=== PATIENT | male | born 1950 | race Caucasian/White ===

== ENCOUNTER 2016-04-30 18:35 | Inpatient (IN) ==
[2016-04-30] MEDS ORDERED: Indomethacin 25 MG CAPSULE PO ONE (18:52)
[2016-04-30] MEDS ORDERED: *HR* HYDROmorphone (PF) 1 MG/ML SYRINGE IVP ONE (18:52)
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
[2016-04-30] MEDS ORDERED: Ondansetron 4 MG/2 ML VIAL IV STA (19:21)
[2016-04-30 19:27] LABS: Basophils % 0.5 %; Eosinophils # 0.1 K/mcL (0.0-0.6); Eosinophils % 1.3 %; Hematocrit 49.9 % (37.5-50.1); Hemoglobin 16.6 g/dL (12.9-16.9); Lymphocytes # 1.3 K/mcL (0.6-4.6); Lymphocytes % 15.4 %; Mean Corpuscular HGB Conc 33.3 g/dL (31.6-35.5); Mean Corpuscular Hemoglobin 30.2 pg (28.0-33.3); Mean Corpuscular Volume 90.9 fL (83.0-100.0); Monocytes # 1.1 K/mcL (0.0-1.3); Monocytes % 12.1 %; Neutrophils # 6.1 K/mcL (1.6-8.9); Platelet Count 171 K/mcL (140-400); Red Blood Count 5.49 M/mcL (4.19-5.50); Red Cell Distribution Width 13.8 % (11.5-14.5); Segmented Neutrophils % 69.7 %
[2016-04-30 19:39] LABS: BUN/Creatinine Ratio 18 (6-26); Blood Urea Nitrogen 18 mg/dL (8-26); Calcium 7.9 mg/dL (8.6-10.8); Carbon Dioxide 20 mEq/L (19-29); Chloride 107 mEq/L (98-109); Glucose 114 mg/dL (70-99); Osmolality,Calculated 291 (280-300); Potassium 3.7 mEq/L (3.5-4.5); Sodium 139 mEq/L (136-145); eGFR For African Americans > 60 (> 60); eGFR For Non-African Americans > 60 (> 60)
[2016-04-30] MEDS ORDERED: Albuterol 2.5 MG/3 ML NEBULIZER IH PRN (23:06)
[2016-04-30] MEDS ORDERED: Naloxone 0.4 MG/ML INJ IVP PRN (23:11)
[2016-04-30] MEDS ORDERED: Acetaminophen 325 MG TABLET PO PRN (23:11)
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
[2016-04-30] MEDS: Colchicine 0.6 MG TABLET PO SCH (23:38)
[2016-05-01] MEDS: Ipratropium 1 PUFF INHALER IH SCH ×4 (04:51→22:58)
[2016-05-01] MEDS: Colchicine 0.6 MG TABLET PO SCH ×2 (08:35→16:31)
[2016-05-01] MEDS: Nystatin POWDER 30 GM BOTTLE TP SCH ×3 (08:35→21:00)
[2016-05-01] MEDS: Aspirin Enteric Coated 81 MG Tablet PO SCH (08:35)
[2016-05-01] MEDS: Lisinopril 20 MG TABLET PO SCH (08:35)
[2016-05-01] MEDS ORDERED: NON-FORMULARY MEDICATION 1 EACH EACH (Ipratropium/Albuterol Sulfate [Combivent Respimat In IH SCH (09:00)
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
[2016-05-02] MEDS: Ipratropium 1 PUFF INHALER IH SCH ×4 (04:17→23:20)
[2016-05-02 04:52] LABS: Basophils # 0.1 K/mcL (0.0-0.2); Basophils % 0.6 %; Eosinophils # 0.3 K/mcL (0.0-0.6); Eosinophils % 4.1 %; Hematocrit 46.1 % (37.5-50.1); Hemoglobin 15.4 g/dL (12.9-16.9); Immature Granulocytes % 1.3 % (0-4); Lymphocytes # 1.9 K/mcL (0.6-4.6); Lymphocytes % 24.1 %; Mean Corpuscular HGB Conc 33.4 g/dL (31.6-35.5); Mean Corpuscular Hemoglobin 30.7 pg (28.0-33.3); Mean Corpuscular Volume 91.8 fL (83.0-100.0); Mean Platelet Volume 9.3 fL (9.4-12.4); Monocytes # 0.9 K/mcL (0.0-1.3); Neutrophils # 4.5 K/mcL (1.6-8.9); Platelet Count 218 K/mcL (140-400); Red Blood Count 5.02 M/mcL (4.19-5.50); Segmented Neutrophils % 58.9 %
[2016-05-02 05:04] LABS: Calcium 8.6 mg/dL (8.6-10.8); Potassium 4.6 mEq/L (3.5-4.5); Uric Acid 8.5 mg/dL (3.5-7.2)
[2016-05-02] MEDS: Lisinopril 20 MG TABLET PO SCH (09:32)
[2016-05-02] MEDS: Colchicine 0.6 MG TABLET PO SCH (09:32)
[2016-05-02] MEDS: Aspirin Enteric Coated 81 MG Tablet PO SCH (09:32)
[2016-05-02] MEDS: Nystatin POWDER 30 GM BOTTLE TP SCH ×3 (09:32→21:46)
[2016-05-02] MEDS: 0.9 % Sodium Chloride 1,000 ML IVC SCH ×2 (09:33→19:47)
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
[2016-05-02] MEDS: Ketorolac 15 MG/ML VIAL IVP PRN (21:53)
[2016-05-03] MEDS: Ipratropium 1 PUFF INHALER IH SCH ×4 (04:19→23:46)
[2016-05-03 05:10] LABS: BUN/Creatinine Ratio 34 (6-26); Blood Urea Nitrogen 45 mg/dL (8-26); Calcium 8.4 mg/dL (8.6-10.8); Carbon Dioxide 20 mEq/L (19-29); Chloride 109 mEq/L (98-109); Glucose 114 mg/dL (70-99); Osmolality,Calculated 298 (280-300); Potassium 4.6 mEq/L (3.5-4.5); Sodium 138 mEq/L (136-145); Uric Acid 7.5 mg/dL (3.5-7.2); eGFR For African Americans > 60 (> 60); eGFR For Non-African Americans 54 (> 60)
[2016-05-03] MEDS: 0.9 % Sodium Chloride 1,000 ML IVC SCH ×2 (06:06→15:17)
[2016-05-03] MEDS: Lisinopril 20 MG TABLET PO SCH (07:30)
[2016-05-03] MEDS: Colchicine 0.6 MG TABLET PO SCH (07:30)
[2016-05-03] MEDS: Aspirin Enteric Coated 81 MG Tablet PO SCH (07:30)
[2016-05-03] MEDS: Nystatin POWDER 30 GM BOTTLE TP SCH ×3 (07:30→19:50)
[2016-05-03 10:43] LABS: Phosphorous 3.9 mg/dL (2.3-4.7)
--- NOTE | 2016-05-03 19:19 | Internal Med Progress Note ---
Date of Encounter: 05/03/16 Time of Encounter: 11:10 - Assessment and plan (1) Acute renal failure superimposed on stage 3 chronic kidney disease Current Visit: Yes Status: Acute (2) Gout Current Visit: Yes Status: Acute Assessment and plan: Plan Continue current medication, ambulate, physical therapy consult, continue fluids. Possible discharge next 24-hour with home health. Patient still has trouble with ambulation and standing because his pain. Consider home health on discharge. Adjust pain medication as tolerated Qualifiers: Gout site: foot Gout etiology: unspecified cause Laterality: unspecified laterality Chronicity: acute Qualified Code(s): M10.9 - Gout, unspecified - Subjective Interval history: Patient complains of pain in the bottom of his feet. Feels better compared to yesterday. Patient denies any chest pain or shortness of breath. He is complaining of feeling weak. He had bowel movement yesterday - Constitutional Vitals: Temp Pulse Resp BP Pulse Ox 97.5 F L 83 16 108/69 93 L 05/03/16 16:01 05/03/16 16:01 05/03/16 16:01 05/03/16 16:01 05/03/16 16:01 General appearance: Present: A&O X 3, morbidly obese, pleasant, no acute distress, answers questions appropriately - Head Head exam: Present: atraumatic, normocephalic - Neck Neck exam general surgery: Present: supple, trachea midline. Absent: lymphadenopathy - Respiratory Respiratory exam: Present: decreased breath sounds. Absent: accessory muscle use, rales, rhonchi, wheezes - Cardiovascular Cardiovascular exam: Present: RRR, +S1, +S2. Absent: diastolic murmur, gallop, rubs, systolic murmur - GI/Abdominal GI/Abdominal exam: Present: normal bowel sounds, soft, no peritoneal signs. Absent: distended, tenderness - Extremities Exam Extremities exam: Absent: calf tenderness (Tenderness on the sole of or so of both feet his feet), cyanotic - Neurological Exam Neurological exam: Present: CN II-XII intact, oriented X3, no focal deficits. Absent: speech deficit Internal Medicine: Result - Labs CBC & Chem 7: 05/02/16 04:12 05/03/16 04:40 Labs: BMP 05/03/16 04:40 Sodium 138 Potassium 4.6 H Chloride 109 Carbon Dioxide 20 BUN 45 H Creatinine 1.34 H Glucose 114 H Calcium 8.4 L Consult Discharge Plan - Plan Referrals: NO,PCP [Primary Care Provider] -
[2016-05-04] MEDS: 0.9 % Sodium Chloride 1,000 ML IVC SCH ×2 (01:05→12:37)
[2016-05-04] MEDS: Ketorolac 15 MG/ML VIAL IVP PRN (04:35)
[2016-05-04] MEDS: Ipratropium 1 PUFF INHALER IH SCH ×3 (04:47→16:24)
[2016-05-04] MEDS: Colchicine 0.6 MG TABLET PO SCH (08:58)
[2016-05-04] MEDS: Lisinopril 20 MG TABLET PO SCH (08:59)
[2016-05-04] MEDS: Aspirin Enteric Coated 81 MG Tablet PO SCH (08:59)
[2016-05-04] MEDS: Nystatin POWDER 30 GM BOTTLE TP SCH ×2 (09:00→12:37)
[2016-05-04 11:59] VITALS: BP 118/74
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
--- NOTE | 2016-05-04 17:54 | Physician Discharge Referral ---
Home Health/Hosp Referral Info Provider in Charge Post Discharge: PCP - Diagnosis (1) Acute renal failure superimposed on stage 3 chronic kidney disease Priority: Primary Status: Acute (2) Gout Priority: Primary Status: Acute - Respiratory Orders Smoking Cessation: Smoking cessation has been advised. For more information, call the [place] Tobacco Quit Line at 6-190-WMNI-NOW. - Diet/Nutrition Diet/Nutrition Orders: Renal - Activity Activity Orders: Walker - Services Needed Following services are medically necessary services: Nursing, Physical Therapy - Transfer Medications Prescriptions: Acetaminophen [Tylenol] 650 mg PO Q6HR PRN #60 tablet PRN Reason: Fever Colchicine [Colcrys] 0.6 mg PO DAILY #30 tablet Nystatin POWDER [Nystop] 1 appl TP TID #1 bottle Omeprazole [PriLOSEC] 20 mg PO DAILY@0630 #30 capsule. Home Medications: Albuterol Neb [Proventil Neb] 3 ml IH Q6H PRN 04/01/16 [History] Albuterol Sulfate [Ventolin Hfa] 2 puff IH Q6H PRN 04/01/16 [History] Aspirin [Lo-Dose Aspirin EC] 81 mg PO DAILY 04/01/16 [History] Enalapril Maleate [Vasotec] 20 mg PO DAILY 04/01/16 [History] Ipratropium/Albuterol Sulfate [Combivent Respimat Inhal [place]] 1 puff IH QID [History] Acetaminophen [Tylenol] 650 mg PO Q6HR PRN #60 tablet 05/04/16 [Rx] Allopurinol [Zyloprim 300 MG] 150 mg PO DAILY #45 05/04/16 [Rx] Colchicine [Colcrys] 0.6 mg PO DAILY #30 tablet 05/04/16 [Rx] Nystatin POWDER [Nystop] 1 appl TP TID #1 bottle 05/04/16 [Rx] Omeprazole [PriLOSEC] 20 mg PO DAILY@0630 #30 capsule. 05/04/16 [Rx] Allergies/Adverse Reactions: Allergies Sulfa (Sulfonamide Antibiotics) Allergy (Verified 04/01/16 10:50) See Comments PATIENT UNSURE OF REACTION- Certification: Further, I certify that my clinical findings support that this patient is homebound (i.e. absences from home require considerable and taxing effort and are for medical reasons or anglican services or infrequently or short duration when for other reasons) because: Homebound Reason: Patient requires assistance of a person or device to safely leave home, Leaving home requires considerable and taxing effort due to condition Attestation: My signature below is to certify that this patient is under my care and that I, or nurse practitioner, or a physician's certified physician's assistant working with me, has a face-to -face encounter with this patient.
== END 2016-05-04 17:11 | disposition home health service (06) | DRG 683 ==
LOC: EMEROO 18:35 → 3BNU 18:35
PROVIDERS: ADMIT Internal Medicine; ATTEND Nurse Practitioner Family

== ENCOUNTER 2016-08-30 12:08 | Observation (INO) ==
[2016-08-30] MEDS ORDERED: Ipratropium/Albuterol Neb 3 ML IH ONE (12:11)
--- NOTE | 2016-08-30 12:17 | Emergency Department Note ---
Disposition Clinical Impression: Asthma with exacerbation Qualifiers: Asthma severity: unspecified severity Qualified Code(s): J45.901 - Unspecified asthma with (acute) exacerbation Disposition: Admitted As Inpatient Condition: Fair Time of Disposition: 13:27 SOB HPI - General Stated Complaint: cough, gasper Time Seen by Provider: 08/30/16 12:11 Source: patient, EMS Mode of arrival: ambulatory Limitations: no limitations Nursing Notes Reviewed: Yes Vital Signs Reviewed: Yes - History of Present Illness History 5-year-old comes in complaining of increasing shortness breath over the last day or so. Squad states that he has not been diagnosed with any lung problems but he does use an inhaler at home and he is on 2-1/2 L of oxygen. Patient is scheduled to be seen by pulmonology in the next week or so. She's had a cough and he feels that he has bronchitis. Pt Subjective Complaint: shortness of breath Onset (ago): Just SIGN ARTIST Context: recent illness Severity: mild, moderate Consistency/Duration: constant Improves with: nothing Worsens with: exertion Known history of: asthma Associated symptoms: Reports: cough Treatment prior to arrival: none Cough Description: Involuntary Cough Frequency: Intermittent - Related Data Home Medications Medication Instructions Recorded Confirmed Albuterol Neb [Proventil Neb] 3 ml IH Q6H PRN 04/01/16 04/30/16 Albuterol Sulfate [Ventolin Hfa] 2 puff IH Q6H PRN 04/01/16 04/30/16 Aspirin [Lo-Dose Aspirin EC] 81 mg PO DAILY 04/01/16 04/30/16 Enalapril Maleate [Vasotec] 20 mg PO DAILY 04/01/16 04/30/16 Ipratropium/Albuterol Sulfate 1 puff IH QID 04/01/16 04/30/16 [Combivent Respimat Inhal [place]] Previous Rx's Medication Instructions Recorded Acetaminophen [Tylenol] 650 mg PO Q6HR PRN #60 tablet 05/04/16 Allopurinol [Zyloprim 300 MG] 150 mg PO DAILY #45 05/04/16 Colchicine [Colcrys] 0.6 mg PO DAILY #30 tablet 05/04/16 Nystatin POWDER [Nystop] 1 appl TP TID #1 bottle 05/04/16 Omeprazole [PriLOSEC] 20 mg PO DAILY@0630 #30 capsule. 05/04/16 Allergies Allergy/AdvReac Type Severity Reaction Status Date / Time Sulfa (Sulfonamide Allergy See Verified 04/01/16 10:50 Antibiotics) Comments All systems ED: reviewed and negative except as stated. Constitutional: Denies: fever, chills, weakness, weight change Eyes: Denies: eye pain, eye discharge, vision change ENT ED: Denies: ear pain, throat pain, dental pain, hearing loss, epistaxis, congestion, dysphagia Cardiovascular: Denies: chest pain, palpitations, dyspnea on exertion, edema, syncope Respiratory: Reports: dyspnea. Denies: cough, wheezes, hemoptysis, stridor Gastrointestinal: Denies: abdominal pain, nausea, vomiting, diarrhea, constipation, hematemesis, melena, hematochezia Genitourinary: Denies: urgency, dysuria, frequency, hematuria Musculoskeletal: Denies: back pain, neck pain, arthralgia, myalgia Integumentary: Denies: rash, abrasion, lesions Neurological: Denies: headache, weakness, numbness, paresthesias, confusion, abnormal gait, vertigo Psychiatric: Denies: anxiety, depression, suicidal thoughts, homicidal thoughts , auditory hallucinations, visual hallucinations Endocrine: Denies: fatigue Hematological/Lymphatic: Denies: easy bleeding, easy bruising Allergic/Immunologic: Denies: facial swelling, urticaria Past Medical History - Past Medical History Medical history: Reports: arthritis, asthma, COPD, hypertension, osteoporosis, other Surgical history: Reports: cholecystectomy, other Psychiatric history: Reports: no psych history - Social History Smoking Status: Former smoker Smokeless Tobacco Status: No Alcohol use: Reports: none Drug use: Reports: none Physical Exam - General Limitations: no limitations General appearance: alert - Head Head exam: atraumatic, normocephalic, normal inspection - Eye Eye exam: Present: normal appearance, PERRL, EOMI - ENT ENT exam: normal exam, normal oropharynx, mucous membranes moist - Neck Neck exam: Present: normal inspection, full ROM, trachea midline - Chest Chest inspection: Present: normal inspection, symmetric chest wall rise - Respiratory Respiratory exam: Present: wheezes, accessory muscle use - Cardiovascular Cardiovascular exam: Present: regular rate, normal rhythm, normal heart sounds - Abdominal Exam Abdominal exam: Present: soft, Non-Tender. Absent: tenderness, distention, guarding, rebound, rigidity - Extremities Exam Extremities exam: Present: normal inspection, full ROM. Absent: tenderness, pedal edema - Expanded Lower Extremity Exam Neurovascular/Tendon exam: Absent: motor deficit, sensory deficit, tendon deficit Gait: observed and normal - Back Exam Back exam: Present: normal inspection, full ROM. Absent: tenderness - Neurological Exam Neurological exam: Present: alert, oriented X3 - Psychiatric Psychiatric exam: Present: normal affect, normal mood - Skin Skin exam: Present: warm, dry, intact, normal color Course - Reevaluation(s) Reevaluation #1: Continues with wheezing and shortness of breath although improved from arrival. Will admit. Time: 13:28 - Consultations Consultation #1: Discussed with Dr. Metzger, admit. Time: 13:28 Vital Signs Temperature 98.4 F 08/30/16 12:10 Pulse Rate 76 08/30/16 12:10 Respiratory Rate 18 08/30/16 12:10 Blood Pressure 126/88 08/30/16 12:10 O2 Sat by Pulse Oximetry 94 08/30/16 12:10 Temperature 98.4 F 08/30/16 12:10 Pulse Rate 76 08/30/16 12:10 Respiratory Rate 18 08/30/16 12:25 Blood Pressure 126/88 08/30/16 12:25 O2 Sat by Pulse Oximetry 91 08/30/16 12:25 Oxygen Delivery Oxygen Delivery Nasal Cannula Shortness of Breath/Dyspnea - Lab Data Lab results reviewed: Yes I reviewed the patient's lab results. Result diagrams: 08/30/16 12:37 08/30/16 12:37 Lab Results 08/30/16 08/30/16 08/30/16 Range/Units 12:37 12:37 12:37 WBC 7.3 (4.3-11.1) K/mcL RBC 5.43 (4.19-5.50) M/mcL Hgb 16.1 (12.9-16.9) g/dL Hct 49.8 (37.5-50.1) % MCV 91.7 (83.0-100.0) fL MCH 29.7 (28.0-33.3) pg MCHC 32.3 (31.6-35.5) g/dL RDW 13.9 (11.5-14.5) % Plt Count 183 (140-400) K/mcL MPV 9.0 L (9.4-12.4) fL Immature Gran % 1.0 (0-4) % Seg Neutrophils % 70.4 % Lymphocytes % 17.2 % Monocytes % 8.7 % Eosinophils % 2.3 % Basophils % 0.4 % Neutrophils # 5.1 (1.6-8.9) K/mcL Lymphocytes # 1.3 (0.6-4.6) K/mcL Monocytes # 0.6 (0.0-1.3) K/mcL Eosinophils # 0.2 (0.0-0.6) K/mcL Basophils # 0.0 (0.0-0.2) K/mcL Sodium 136 (136-145) mEq/L Potassium 4.5 (3.5-4.5) mEq/L Chloride 102 (98-109) mEq/L Carbon Dioxide 26 (19-29) mEq/L BUN 15 (8-26) mg/dL Creatinine 0.94 (0.72-1.25) mg/dL Est GFR ( Amer) > 60 (> 60) Est GFR (Non-Af Amer) > 60 (> 60) BUN/Creatinine Ratio 16 (6-26) Glucose 104 H (70-99) mg/dL Calculated Osmolality 283 (280-300) Lactic Acid 1.4 (0.5-2.2) mmol/L Calcium 9.4 (8.6-10.8) mg/dL Troponin I (0-0.03) ng/mL B-Natriuretic Peptide (0-100) pg/mL 08/30/16 08/30/16 Range/Units 12:37 12:37 WBC (4.3-11.1) K/mcL RBC (4.19-5.50) M/mcL Hgb (12.9-16.9) g/dL Hct (37.5-50.1) % MCV (83.0-100.0) fL MCH (28.0-33.3) pg MCHC (31.6-35.5) g/dL RDW (11.5-14.5) % Plt Count (140-400) K/mcL MPV (9.4-12.4) fL Immature Gran % (0-4) % Seg Neutrophils % % Lymphocytes % % Monocytes % % Eosinophils % % Basophils % % Neutrophils # (1.6-8.9) K/mcL Lymphocytes # (0.6-4.6) K/mcL Monocytes # (0.0-1.3) K/mcL Eosinophils # (0.0-0.6) K/mcL Basophils # (0.0-0.2) K/mcL Sodium (136-145) mEq/L Potassium (3.5-4.5) mEq/L Chloride (98-109) mEq/L Carbon Dioxide (19-29) mEq/L BUN (8-26) mg/dL Creatinine (0.72-1.25) mg/dL Est GFR ( Amer) (> 60) Est GFR (Non-Af Amer) (> 60) BUN/Creatinine Ratio (6-26) Glucose (70-99) mg/dL Calculated Osmolality (280-300) Lactic Acid (0.5-2.2) mmol/L Calcium (8.6-10.8) mg/dL Troponin I 0.01 (0-0.03) ng/mL B-Natriuretic Peptide 14 (0-100) pg/mL - Radiology Data Radiology results reviewed: Yes I reviewed the patient's radiology results. Chest X-Ray 08/30/16 12:11 IMPRESSION: 1. Exam limited by positioning. 2. Mild vascular congestive changes with suggestion of mild interstitial edema. 3. Chronic asymmetric elevation of the right diaphragm. D/ / 08/30/2016 13:04:56 Jared Cordero MD / Neha Ibrahim Interpreting Provider: Jared Cordero MD - EKG Data EKG attestation: Yes I reviewed and interpreted this EKG. EKG shows normal: Reports: sinus rhythm Rate: Reports: normal Rhythm: Reports: NSR, PVC's [place]/QRS: Reports: RBBB When compared to previous EKG there are: no significant changes (04/01/2016) Interpretation: Reports: no acute changes
[2016-08-30 12:53] LABS: Basophils % 0.4 %; Eosinophils # 0.2 K/mcL (0.0-0.6); Eosinophils % 2.3 %; Hematocrit 49.8 % (37.5-50.1); Hemoglobin 16.1 g/dL (12.9-16.9); Lymphocytes # 1.3 K/mcL (0.6-4.6); Lymphocytes % 17.2 %; Mean Corpuscular HGB Conc 32.3 g/dL (31.6-35.5); Mean Corpuscular Hemoglobin 29.7 pg (28.0-33.3); Mean Corpuscular Volume 91.7 fL (83.0-100.0); Monocytes # 0.6 K/mcL (0.0-1.3); Monocytes % 8.7 %; Neutrophils # 5.1 K/mcL (1.6-8.9); Platelet Count 183 K/mcL (140-400); Red Blood Count 5.43 M/mcL (4.19-5.50); Red Cell Distribution Width 13.9 % (11.5-14.5); Segmented Neutrophils % 70.4 %
[2016-08-30 13:07] LABS: BUN/Creatinine Ratio 16 (6-26); Blood Urea Nitrogen 15 mg/dL (8-26); Calcium 9.4 mg/dL (8.6-10.8); Carbon Dioxide 26 mEq/L (19-29); Chloride 102 mEq/L (98-109); Glucose 104 mg/dL (70-99); Osmolality,Calculated 283 (280-300); Potassium 4.5 mEq/L (3.5-4.5); Sodium 136 mEq/L (136-145); eGFR For African Americans > 60 (> 60); eGFR For Non-African Americans > 60 (> 60)
[2016-08-30] MEDS ORDERED: methylPREDNISolone 125 MG/2 ML VIAL IVP ONE (13:25)
--- NOTE | 2016-08-30 13:47 | Event Note ---
Date of Encounter: 08/30/16 Time of Encounter: 13:44 1. Acute on chronic respiratory failure likely secondary to acute asthma/COPD exacerbation due to acute bacterial bronchitis in combination with acute CHF exacerbation systolic versus diastolic Continue Solu-Medrol, DuoNeb nebs, oxygen therapy, Rocephin Start IV Lasix, strict I's and O's and daily weight Order an echocardiogram BNP normal ( can be normal in Obese people, chest x-ray shows vascular congestion) 2. Chronic kidney disease stage III, stable 3. Gout: May continue colchicine 4. Morbid Obesity 5. GERD, continue omeprazole charlee prophylaxis and subcutaneous heparin for dvt prophylaxis. patient will be admitted as inpatient, expected stay more than 2 midnights. full code. time spent on this admission 40 minutes. high risk for respiratory failure H&P to be written by GEENA Caicedo
[2016-08-30] MEDS ORDERED: *HR* HYDROcodone/Acet 5/325 mg TABLET PO PRN (14:01)
[2016-08-30] MEDS ORDERED: Naloxone 0.4 MG/ML INJ IVP PRN (14:01)
[2016-08-30] MEDS ORDERED: Acetaminophen 325 MG TABLET PO PRN (14:01)
[2016-08-30] MEDS ORDERED: Ondansetron 4 MG/2 ML VIAL IVP PRN (14:01)
[2016-08-30 14:02] LABS: Bilirubin,Urine Negative (Negative); Blood,Urine Negative (Negative); Clarity,Urine Clear (Clear); Color,Urine Yellow (Yellow); Glucose,Urine (UA) Normal (Normal); Ketones,Urine Negative (Negative); Leukocyte Esterase,Urine Negative (Negative); Nitrite,Urine Negative (Negative); Protein,Urine Negative (Neg-Trace); Specific Gravity,Urine 1.009 (1.010-1.025); Urobilinogen,Urine Normal (Normal)
[2016-08-30] MEDS ORDERED: Albuterol 2.5 MG/3 ML NEBULIZER IH PRN (14:05)
--- NOTE | 2016-08-30 14:17 | Internal Med History&Physical ---
<SaschaLalo - Last Filed: 08/30/16 15:00> Date of Encounter: 08/30/16 Time of Encounter: 13:45 Assessment and Plan (1) Asthma with exacerbation Current visit: Yes Status: Acute Assess: Mr. Mahoney presents with chief complaint of SOB and cough secondary to asthma/ COPD exacerbation most likely due to acute bacterial bronchitis (possible CHF). Patient states this has been going on for the last 48 hours with yellow sputum production within the past 24 hours. Mr. Mahoney reports that he uses inhaler and puffer at home as well as home O2 at 2.5 L. He states that he gets bronchitis frequently and these symptoms are what he usually experiences with bronchitis. Plan: Solu-Medrol ordered DuoNebs PRN Blood cultures ordered Sputum culture ordered Supplemental O2 ordered Administer IV Lasix IV Rocephin ordered Daily I&O Daily weight Monitor SpO2 and vital signs Falls precautions Qualifiers: Asthma severity: unspecified severity Qualified Code(s): J45.901 - Unspecified asthma with (acute) exacerbation (2) Acute gout Current visit: Yes Status: Acute Assess: Patient presents with history of chronic gout and acute exacerbation of gout during this admission. Plan: Continue Allopurinol and add colchicine if needed Qualifiers: Gout site: foot Gout etiology: unspecified cause Laterality: left Qualified Code(s): M10.9 - Gout, unspecified (3) COPD (chronic obstructive pulmonary disease) Current visit: Yes Status: Chronic Assess: Patient presents with history of chronic COPD. Patient is currently experiencing acute asthma/COPD exacerbation during this admission. Plan: Solu-Medrol ordered DuoNebs ordered PRN Supplemental O2 and SpO2 monitoring ordered IV Rocephin ordered for acute bacterial bronchitis Administer IV Lasix Continue Proventil, Albuterol sulfate inhaler, and Ipratropium/albuterol inhaler PRN Qualifiers: COPD type: unspecified COPD Qualified Code(s): J44.9 - Chronic obstructive pulmonary disease, unspecified (4) Morbid obesity with BMI of 50.0-59.9, adult Current visit: Yes Status: Chronic Assess: Patient presents with mordid obesity and current BMI of 58.0. Plan: Cardiac diet ordered Consult for dietary education ordered A1C ordered Lipid panel ordered (5) GERD (gastroesophageal reflux disease) Current visit: Yes Status: Chronic Assess: Patient presents with history of chronic GERD. Plan: Continue Omeprazole Zofran IVP ordered PRN for nausea Qualifiers: Esophagitis presence: esophagitis presence not specified Qualified Code(s) : K21.9 - Gastro-esophageal reflux disease without esophagitis (6) CKD (chronic kidney disease) stage 3, GFR 30-59 ml/min Current visit: No Status: Chronic Assess: Patient presents with chronic kidney disease, stage III (stable). Plan: Monitor I&O daily Monitor daily weight Judicious use of IV fluids (7) DVT prophylaxis Current visit: Yes Status: Acute Assess: Patient to be placed on DVT prophylaxis due to current inpatient status per protocol. Plan: Heparin 5,000 units SQ Q8 ordered Internal Medicine - H&P: HPI Chief complaint: SOB/cough Admitted From: Emergency Dept Plans for Post Hospital Care: Home History of present illness: Mr. Mahoney is a 65 year old male presents from the ED with chief complaint of SOB and cough. Patient states this has been going on for the last 48 hours with yellow sputum production within the past 24 hours. Mr. Mahoney reports that he uses inhaler and puffer at home as well as home O2 at 2.5 L. He states that he gets bronchitis frequently and these symptoms are what he usually experiences with bronchitis. Patient has a history of arthritis, osteoporosis, asthma, COPD , gout, and hypertension. He reports having his gallbladder removed. He also reports being a former smoker when he was in his 20's (approximately 40 years ago) but denies current tobacco use. Patient also denies nausea, vomiting, fever , chills, pain, headache, weakness, or exposure to any friends or family who are ill. Patient is to be admitted as observation status with orders for blood and sputum cultures, steroids, Lasix, breathing treatments PRN, and IV cetriaxone. Patient is falls precaution. Past Med Surg Social Fam HX - Past Medical History Medical history: arthritis, asthma, COPD, hypertension, osteoporosis, other ( Gout) Psychiatric history: no psych history - Past Surgical History Surgical History: cholecystectomy - Social History Smoking Status: Former smoker Packs per day: 1/2 PPD 40 years ago Smokeless Tobacco Status: No Alcohol use: none Drug use: none Occupational status: unemployed Current living situation: Home, With Family Activity Level: Independent ambulation Recent Out of Country Travel Within the Last 8 Weeks: No Exposure or Possible Exposure to Illness During Travel: No - Family History Mother Race: Family Member Ethnicity: Non- Twin of Family Member: Yes Living Status: Age at : 70 Hx Family Cardiac Disorders: Yes Hx Family Respiratory Disorders: Yes (COPD) Hx Family Cancer: No Hx Family GI Disorders: No Hx Family Endocrine Disorder: No Hx Family Neuromuscular Disorders: No Hx Family Neurologic Disorders: No Hx Family HEENT Disorders: No Hx Family Autoimmune Disorders: No Father Race: Family Member Ethnicity: Non- Living Status: Cause of : EtOH abuse Brother Race: Family Member Ethnicity: Non- Living Status: Still Living Hx Family Respiratory Disorders: Yes (Lung disease/COPD) Sister Race: Family Member Ethnicity: Non- Living Status: Still Living Hx Family Endocrine Disorder: Yes (DM) Internal Medicine - H&P: Meds Albuterol Neb [Proventil Neb] 3 ml IH Q6H PRN 04/01/16 [History] Albuterol Sulfate [Ventolin Hfa] 2 puff IH Q6H PRN 04/01/16 [History] Aspirin [Lo-Dose Aspirin EC] 81 mg PO DAILY 04/01/16 [History] Enalapril Maleate [Vasotec] 20 mg PO DAILY 04/01/16 [History] Ipratropium/Albuterol Sulfate [Combivent Respimat Inhal [place]] 1 puff IH QID [History] Allopurinol [Zyloprim 100 MG] 100 mg PO DAILY 08/30/16 [History] Omeprazole [PriLOSEC] 20 mg PO DAILY 08/30/16 [History] hydroCHLOROthiazide [Hydrochlorothiazide] 25 mg PO DAILY 08/30/16 [History] Allergies Sulfa (Sulfonamide Antibiotics) Allergy (Verified 04/01/16 10:50) See Comments PATIENT UNSURE OF REACTION- All Systems PM: A 10-system review of systems was performed and is negative for pertinent findings except as documented above in the HPI. - Constitutional Constitutional: no chills, no fever(s), no night sweats - EENT Eyes: no change in vision, no discharge, no pain, no photophobia Ears: no ear discharge, no ear pain, no tinnitus Nose, mouth and throat: no dysphagia, no nasal discharge, no neck pain, no sore throat - Breasts Breasts: as per HPI - Cardiovascular Cardiovascular ROS IM: no chest pain, no diaphoresis, no dyspnea, no lightheadedness, no palpitations, no syncope - Respiratory Respiratory: as per HPI, cough, dyspnea, change in phlegm color - Gastrointestinal Gastrointestinal: no abdominal pain, no diarrhea, no hematemesis, no hematochezia, no melena, no nausea, no vomiting - Genitourinary Genitourinary ROS male: as per HPI - Musculoskeletal Musculoskeletal ROS IM: no numbness, no tingling - Integumentary Integumentary IM: no rash, no unusual bruising - Neurological Neurological ROS: no confusion, no convulsions, no focal weakness, no numbness, no tingling, no tremor(s) - Psychiatric Psychiatric: as per HPI - Endocrine Endocrine IM: as per HPI - Hematologic/Lymphatic Hematologic/Lymphatic: no easy bruising - Allergic/Immunologic Allergic/Immunologic: as per HPI - Constitutional Vitals: Temp Pulse Resp BP Pulse Ox 98.4 F 74 18 110/69 96 08/30/16 12:10 08/30/16 13:43 08/30/16 13:56 08/30/16 13:56 08/30/16 13:43 General appearance: Present: cooperative, A&O X 3, morbidly obese, pleasant, no acute distress, answers questions appropriately - Head Head exam: Present: atraumatic, normocephalic - Eye Eye exam: Present: PERRL, conjuntiva pink, sclera anicteric Pupils: Present: PERRL - ENT ENT exam: Present: normal exam, normal external ear exam - Neck Neck exam general surgery: Present: supple, trachea midline. Absent: lymphadenopathy - Respiratory Respiratory exam: Present: decreased breath sounds. Absent: accessory muscle use, rales, rhonchi, wheezes - Cardiovascular Cardiovascular exam: Present: RRR, +S1, +S2. Absent: diastolic murmur, gallop, rubs, systolic murmur - GI/Abdominal GI/Abdominal exam: Present: normal bowel sounds, soft, no peritoneal signs. Absent: distended, tenderness - Rectal Rectal exam: Present: deferred - Additional comments: exam deferred. - Extremities Exam Extremities exam: Present: normal inspection, warm, radial pulses palpable and symetrical. Absent: calf tenderness, cyanotic, pedal edema - Back Exam Back exam: Present: normal inspection - Neurological Exam Neurological exam: Present: CN II-XII intact, oriented X3, no focal deficits. Absent: pronater drift, facial droop, speech deficit - Psychiatric Psychiatric exam: Present: normal affect, normal mood - Skin Skin exam: Present: dry, intact Internal Med - H&P Results - Labs CBC & Chem 7: 08/30/16 12:37 08/30/16 12:37 - EKG Data EKG shows normal: sinus rhythm - EKG Data Prior EKG available for review: yes When compared to previous EKG: there are significant changes EKG comments: 08/30/16 14:26 EKG dated 04/01/16 shows: Sinus rhythm with right bundle branch block, left anterior fascicular block, poor R wave progression, and baseline artifact. EKG dated 08/30/16 shows: Sinus rhythm wit occasional ventricular premature complexes, marked left axis deviation, right bundle branch block, and possible anterior myocardial infarction or indeterminate age. - Diagnostic Studies Chest x-ray Additional comments: 1-View CXR of the chest dated 08/30/16 shows: The cardiomediastinal silhouette is mildly enlarged. Patient is rotated. There is asymmetric elevation of the right diaphragm which appears chronic. Mild vascular congestive changes are present with likely mild interstitial edema. No pleural effusion or pneumothorax identified. No significant interval change Overall Impression: Exam limited by positioning. Mild vascular congestive changes with suggestion of mild interstitial edema. Chronic asymmetric elevation of the right diaphragm. <Estuardo Gonzalez H - Last Filed: 08/30/16 17:37> Date of Encounter: 08/30/16 Internal Medicine - H&P: HPI History of present illness: Mr. Mahoney is a 65 year old male All Systems PM: A 10-system review of systems was performed and is negative for pertinent findings except as documented above in the HPI. - Constitutional Vitals: Temp Pulse Resp BP Pulse Ox 97.5 F L 74 18 110/68 95 08/30/16 14:38 08/30/16 14:38 08/30/16 15:27 08/30/16 14:38 08/30/16 15:27 Internal Med - H&P Results - Labs CBC & Chem 7: 08/30/16 12:37 08/30/16 12:37 - Attending Attestation 1. Acute on chronic respiratory failure likely secondary to acute asthma/COPD exacerbation due to acute bacterial bronchitis in combination with acute CHF exacerbation systolic versus diastolic Continue Solu-Medrol, DuoNeb nebs, oxygen therapy, Rocephin Start IV Lasix, strict I's and O's and daily weight Order an echocardiogram BNP normal ( can be normal in Obese people, chest x-ray shows vascular congestion) 2. Chronic kidney disease stage III, stable 3. Gout: May continue colchicine 4. Morbid Obesity 5. GERD, continue omeprazole Omeprazole for GI prophylaxis and subcutaneous heparin for dvt prophylaxis. patient will be admitted as inpatient, expected stay more than 2 midnights. full code. time spent on this admission 40 minutes. high risk for respiratory failure
[2016-08-30] MEDS: Furosemide 40 MG in 0.9 % Sodium Chloride 50 ML IVPB SCH ×2 (15:11→22:00)
[2016-08-30] MEDS: MethylPREDNISolone 40 MG/ML VIAL IVP SCH (15:12)
[2016-08-30] MEDS: *HR* Heparin 5,000 UNIT/ML VIAL SQ SCH ×2 (15:12→22:00)
[2016-08-30] MEDS: Ipratropium/Albuterol Neb 3 ML IH SCH ×3 (15:26→21:34)
[2016-08-30] MEDS ORDERED: Ipratropium/Albuterol Neb 3 ML IH SCH (17:00)
[2016-08-31] MEDS: MethylPREDNISolone 40 MG/ML VIAL IVP SCH ×3 (01:50→15:10)
[2016-08-31 03:55] LABS: Basophils % 0.2 %; Hematocrit 46.5 % (37.5-50.1); Hemoglobin 16.3 g/dL (12.9-16.9); Immature Granulocytes % 0.9 % (0-4); Lymphocytes # 0.6 K/mcL (0.6-4.6); Lymphocytes % 10.7 %; Mean Corpuscular HGB Conc 35.1 g/dL (31.6-35.5); Mean Corpuscular Hemoglobin 31.2 pg (28.0-33.3); Mean Corpuscular Volume 89.1 fL (83.0-100.0); Mean Platelet Volume 9.7 fL (9.4-12.4); Monocytes # 0.1 K/mcL (0.0-1.3); Monocytes % 1.2 %; Neutrophils # 5.1 K/mcL (1.6-8.9); Platelet Count 177 K/mcL (140-400); Red Blood Count 5.22 M/mcL (4.19-5.50); Red Cell Distribution Width 13.7 % (11.5-14.5)
[2016-08-31 03:59] LABS: INR 1.1; Prothrombin Time 11.8 Seconds (9.4-12.1)
[2016-08-31 04:01] LABS: Activated Partial Thrombo Time 31.3 Seconds (26.0-36.0)
[2016-08-31 04:03] LABS: Hemoglobin A1C 5.5 %
[2016-08-31 04:13] LABS: Alanine Aminotransferase 17 Units/L (0-55); Albumin 3.2 g/dL (3.5-5.0); Albumin/Globulin Ratio 0.9 (1.1-2.2); Alkaline Phosphatase 92 Units/L (38-126); Aspartate Amino Transferase 19 Units/L (5-34); BUN/Creatinine Ratio 18 (6-26); Bilirubin,Total 0.7 mg/dL (0.2-1.2); Blood Urea Nitrogen 20 mg/dL (8-26); Calcium 9.2 mg/dL (8.6-10.8); Carbon Dioxide 24 mEq/L (19-29); Chloride 99 mEq/L (98-109); Chol/HDL Ratio 4.7 (0-4.9); Cholesterol 180 mg/dL (< 200); Globulin 3.7 g/dL (2.4-3.5); Glucose 197 mg/dL (70-99); HDL Cholesterol 38 mg/dL (40-59); LDL Cholesterol,Calculated 125 mg/dL (0-99); Osmolality,Calculated 286 (280-300); Potassium 4.2 mEq/L (3.5-4.5); Sodium 134 mEq/L (136-145); Total Protein 6.9 g/dL (6.0-8.3); Triglycerides 83 mg/dL (< 150); eGFR For African Americans > 60 (> 60); eGFR For Non-African Americans > 60 (> 60)
[2016-08-31] MEDS: Ipratropium/Albuterol Neb 3 ML IH SCH ×4 (04:30→21:04)
[2016-08-31] MEDS: *HR* Heparin 5,000 UNIT/ML VIAL SQ SCH ×3 (05:42→21:40)
[2016-08-31] MEDS: Furosemide 40 MG in 0.9 % Sodium Chloride 50 ML IVPB SCH ×2 (09:25→21:40)
[2016-08-31] MEDS: Lisinopril 20 MG TABLET PO SCH (09:25)
[2016-08-31] MEDS: Nystatin POWDER 30 GM BOTTLE TP SCH ×2 (09:26→21:41)
[2016-08-31] MEDS: Aspirin Enteric Coated 81 MG Tablet PO SCH (09:26)
--- NOTE | 2016-08-31 13:48 | Internal Med Progress Note ---
Date of Encounter: 08/31/16 Time of Encounter: 11:20 - Assessment and plan (1) Asthma with exacerbation Current Visit: Yes Status: Acute Assessment and plan: Patient reports one-week history of shortness of breath and productive cough with white sputum. Patient wears oxygen at home at 2 L. He says that he had to increase it to 3 at times over the last week. He reports frequent bouts of bronchitis. Patient was to have echocardiogram today, however due to body habitus and patient positioning with appeared inability to move, echo was canceled. Since patient is going to stay I will reorder the echo with contrast enhancement. Chest CT showed exam limited by positioning, mild vascular congestive changes with suggestion of mild interstitial edema and chronic asymmetric elevation of right diaphragm. Solu-Medrol IV DuoNebs scheduled albuterol treatments when necessary Mental oxygen to maintain sats greater than 92% IV Lasix IV Rocephin Daily I&O Daily weights Monitor SPO2 vital signs Echo pending Qualifiers: Asthma severity: unspecified severity Qualified Code(s): J45.901 - Unspecified asthma with (acute) exacerbation (2) COPD (chronic obstructive pulmonary disease) Current Visit: Yes Status: Chronic Assessment and plan: Plan as above Qualifiers: COPD type: chronic bronchitis Chronic bronchitis type: unspecified Qualified Code(s): J42 - Unspecified chronic bronchitis (3) Acute gout Current Visit: Yes Status: Acute Assessment and plan: Acute on chronic. Continue allopurinol. Patient did not report excessive pain to me. Will add colchicine if needed Qualifiers: Gout site: foot Gout etiology: unspecified cause Laterality: left Qualified Code(s): M10.9 - Gout, unspecified (4) Morbid obesity with BMI of 50.0-59.9, adult Current Visit: Yes Status: Chronic Assessment and plan: Chronic. Lifestyle changes. The patient states that he is unable to independently move in his bed. I am having PT and OT evaluate him. He states that he is ambulatory at home. (5) CKD (chronic kidney disease) stage 3, GFR 30-59 ml/min Current Visit: No Status: Chronic Assessment and plan: Chronic. Avoid nephrotoxins Monitor labs (6) GERD (gastroesophageal reflux disease) Current Visit: Yes Status: Chronic Assessment and plan: Chronic. Continue home medications. Qualifiers: Esophagitis presence: esophagitis presence not specified Qualified Code(s) : K21.9 - Gastro-esophageal reflux disease without esophagitis (7) DVT prophylaxis Current Visit: Yes Status: Acute Assessment and plan: Heparin subcutaneous daily - Time Spent With Patient less than 15 minutes - Subjective Interval history: Patient was seen and assessed at about 1120 this morning. He is resting quietly on his right side. He states it is very hard for him to move in the bed and he needs a lot of assistance. He states that he walks around at home with a cane. Based on limited physical activity that he has exhibited here, I would like to have PT and OT assess him for needs. Patient states that he lives at home with his [id number] and daughter. Patient had an echocardiogram scheduled this morning. Tech approached me and said that the echo could not be done due to body habitus and patient's inability to move himself in a different position in the bed. He reports one-week history of shortness of breath with productive cough with white sputum. He denies fevers. - Constitutional Vitals: Temp Pulse Resp BP Pulse Ox 97.4 F L 85 18 107/62 92 08/31/16 10:53 08/31/16 10:53 08/31/16 10:53 08/31/16 10:53 08/31/16 10:53 General appearance: Present: cooperative, A&O X 3, morbidly obese, pleasant, no acute distress, answers questions appropriately - Head Head exam: Present: normal inspection - Eye Eye exam: Present: normal appearance, conjuntiva pink - ENT ENT exam: Present: mucous membranes moist, normal exam, normal external ear exam - Neck Neck exam general surgery: Present: normal inspection. Absent: lymphadenopathy , tenderness - Respiratory Respiratory exam: Present: decreased breath sounds, wheezes. Absent: rales, respiratory distress, rhonchi - Cardiovascular Cardiovascular exam: Present: RRR, +S1, +S2. Absent: diastolic murmur, systolic murmur - GI/Abdominal GI/Abdominal exam: Present: distended, hypoactive bowel sounds, soft. Absent: tenderness - Extremities Exam Extremities exam: Present: pedal edema, warm, radial pulses palpable and symetrical. Absent: normal inspection, tenderness - Neurological Exam Neurological exam: Present: alert, oriented X3, no focal deficits Internal Medicine: Result - Labs CBC & Chem 7: 08/31/16 02:57 08/31/16 02:57 Labs: Short CBC 08/31/16 Range/Units 02:57 WBC 5.9 (4.3-11.1) K/mcL Hgb 16.3 (12.9-16.9) g/dL Hct 46.5 (37.5-50.1) % Plt Count 177 (140-400) K/mcL Neutrophils # 5.1 (1.6-8.9) K/mcL BMP 08/31/16 02:57 Sodium 134 L Potassium 4.2 Chloride 99 Carbon Dioxide 24 BUN 20 Creatinine 1.14 Glucose 197 H Calcium 9.2 Liver Function 08/31/16 Range/Units 02:57 Total Bilirubin 0.7 (0.2-1.2) mg/dL AST 19 (5-34) Units/L ALT 17 (0-55) Units/L Alkaline Phosphatase 92 (38-126) Units/L Albumin 3.2 L (3.5-5.0) g/dL - ABG Interpretation ABG results: PT/INR, D-dimer PT 11.8 Seconds (9.4-12.1) 08/31/16 02:57 Consult Discharge Plan - Plan
[2016-09-01] MEDS: MethylPREDNISolone 40 MG/ML VIAL IVP SCH ×3 (00:31→16:18)
[2016-09-01] MEDS: Ipratropium/Albuterol Neb 3 ML IH SCH ×4 (03:39→23:07)
[2016-09-01] MEDS: *HR* Heparin 5,000 UNIT/ML VIAL SQ SCH ×3 (05:24→21:44)
[2016-09-01 06:43] LABS: Basophils % 0.1 %; Hematocrit 48.9 % (37.5-50.1); Hemoglobin 16.4 g/dL (12.9-16.9); Immature Granulocytes % 0.9 % (0-4); Lymphocytes # 0.6 K/mcL (0.6-4.6); Lymphocytes % 7.2 %; Mean Corpuscular HGB Conc 33.5 g/dL (31.6-35.5); Mean Corpuscular Hemoglobin 30.1 pg (28.0-33.3); Mean Corpuscular Volume 89.9 fL (83.0-100.0); Mean Platelet Volume 9.5 fL (9.4-12.4); Monocytes # 0.3 K/mcL (0.0-1.3); Monocytes % 3.6 %; Neutrophils # 7.9 K/mcL (1.6-8.9); Platelet Count 187 K/mcL (140-400); Red Blood Count 5.44 M/mcL (4.19-5.50); Red Cell Distribution Width 13.7 % (11.5-14.5); Segmented Neutrophils % 88.2 %
[2016-09-01 07:01] LABS: BUN/Creatinine Ratio 29 (6-26); Blood Urea Nitrogen 32 mg/dL (8-26); Calcium 9.2 mg/dL (8.6-10.8); Carbon Dioxide 26 mEq/L (19-29); Chloride 97 mEq/L (98-109); Glucose 193 mg/dL (70-99); Osmolality,Calculated 290 (280-300); Potassium 4.8 mEq/L (3.5-4.5); Sodium 134 mEq/L (136-145); eGFR For African Americans > 60 (> 60); eGFR For Non-African Americans > 60 (> 60)
[2016-09-01] MEDS: Lisinopril 20 MG TABLET PO SCH (09:22)
[2016-09-01] MEDS: Aspirin Enteric Coated 81 MG Tablet PO SCH (09:22)
[2016-09-01] MEDS: Furosemide 40 MG in 0.9 % Sodium Chloride 50 ML IVPB SCH ×2 (09:25→21:44)
[2016-09-01] MEDS: Nystatin POWDER 30 GM BOTTLE TP SCH ×2 (09:27→21:46)
[2016-09-01] MEDS ORDERED: Perflutren Lipid Microsphere 1.3 ML in 0.9 % Sodium Chloride 8.7 ML IVP ONE (14:11)
--- NOTE | 2016-09-01 16:12 | Discharge Summary ---
Date of Encounter: 09/01/16 Time of Encounter: 08:30 - Discharge Diagnosis (1) Asthma with exacerbation Priority: Primary Status: Acute Comments: Patient is significantly better today than he was yesterday. He says it has cough has improved although he still does have a productive cough with white sputum intermittently. He says that he is not short of breath as he was previously. Lungs still have expiratory wheezing, only and left. Right is clear and diminished. Original chest CT showed exam is limited by positioning but mild vascular congestive changes with mild interstitial edema and chronic asymmetric elevation of right diaphragm. Patient does wear oxygen at home 2 L. He is still on 2 L here at this time. His sats are within normal limits. Patient denies need for refills on inhalers or nebulizer medications. He will be sent home on an antibiotic and a steroid taper. Qualifiers: Asthma severity: unspecified severity Qualified Code(s): J45.901 - Unspecified asthma with (acute) exacerbation (2) COPD (chronic obstructive pulmonary disease) Status: Chronic Comments: Plan as above Qualifiers: COPD type: chronic bronchitis Chronic bronchitis type: unspecified Qualified Code(s): J42 - Unspecified chronic bronchitis (3) Acute gout Priority: Secondary Status: Acute Comments: Acute on chronic. Continue home medication. Patient states that he is not having pain today. Qualifiers: Gout site: foot Gout etiology: unspecified cause Laterality: left Qualified Code(s): M10.9 - Gout, unspecified (4) Morbid obesity with BMI of 50.0-59.9, adult Priority: Secondary Status: Chronic Comments: Chronic. Lifestyle changes. (5) CKD (chronic kidney disease) stage 3, GFR 30-59 ml/min Priority: Secondary Status: Chronic Comments: Creatinine is within normal limits today. GFR is greater than 60. Patient will need to follow up with primary care for continued evaluation. Avoid nephrotoxins. (6) GERD (gastroesophageal reflux disease) Priority: Secondary Status: Chronic Comments: Chronic. Continue home medications. Qualifiers: Esophagitis presence: esophagitis presence not specified Qualified Code(s) : K21.9 - Gastro-esophageal reflux disease without esophagitis (7) DVT prophylaxis Priority: Secondary Status: Acute Comments: Heparin subcutaneous daily. - Discharge Medications Prescriptions: GuaiFENesin ER [Mucinex] 600 mg PO BID PRN #30 tbbp.12hr PRN Reason: Cough predniSONE [Prednisone] 10 mg PO DAILY #31 tab.ds.pk Home Medications: Albuterol Neb [Proventil Neb] 3 ml IH Q6H PRN 04/01/16 [History] Albuterol Sulfate [Ventolin Hfa] 2 puff IH Q6H PRN 04/01/16 [History] Aspirin [Lo-Dose Aspirin EC] 81 mg PO DAILY 04/01/16 [History] Enalapril Maleate [Vasotec] 20 mg PO DAILY 04/01/16 [History] Ipratropium/Albuterol Sulfate [Combivent Respimat Inhal [place]] 1 puff IH QID [History] Allopurinol [Zyloprim 100 MG] 100 mg PO DAILY 08/30/16 [History] Omeprazole [PriLOSEC] 20 mg PO DAILY 08/30/16 [History] hydroCHLOROthiazide [Hydrochlorothiazide] 25 mg PO DAILY 08/30/16 [History] GuaiFENesin ER [Mucinex] 600 mg PO BID PRN #30 tbbp.12hr 09/01/16 [Rx] predniSONE [Prednisone] 10 mg PO DAILY #31 tab.ds.pk 09/01/16 [Rx] Allergies/Adverse Reactions: Allergies Sulfa (Sulfonamide Antibiotics) Allergy (Verified 04/01/16 10:50) See Comments PATIENT UNSURE OF REACTION- Procedures/tests Complete & Pending: Procedures Performed prior 72 hours Category Date Time Status EV echocardiogram w enhance Routine Y 09/01/16 13:58 Completed Date of admission: 08/30/16 13:46 Primary care physician: PCP NO Consults: 08/30/16 14:04 consult to it service technician [Consult to Nutrition] [CONS] Routine Comment: Patient currently has BMI of 57.4 Consulting Provider: NUTRITION Reason for Dietary Consult: Diet Education 08/31/16 14:01 Consult to Occupational Therapy [CONS] Routine Comment: Evaluate, develop and implement POC Reason for Consult: evaluation Consult to Physical Therapy [CONS] Routine Comment: Evaluate, develop and implement POC Reason for Consult: evaluation Discharging clinician: Cheyenne Walker Anticipated date of discharge: 09/01/16 - Patient Status Disposition: Home Health Service Condition: Good Functional capacity at discharge: uses cane/walker Overall status at discharge: patient is progressing back to baseline - Discharge Instructions Follow Up With: NO,PCP [Primary Care Provider] - Forms: ED Satisfaction Letter Additional Instructions: Take your medications as directed. Take your steroid until it is gone. Resume your other medications. Follow up with your family doctor within the next week to 10 days for a follow up appointment. use your inhalers and nebulizer as directed. Return to the ER as needed for any other problems or concerns, or if you begin having more shortness of breath or if you get a fever, chills, nausea/vomiting, or chest pain. Hospital course: Mr. Mahoney is a 65 year old male with a past medical history of hypertension, gout, COPD, morbid obesity, GERD, CK D stage III. Pt presented to the emergency department with a two-day history of productive cough with white sputum and shortness of breath. Patient states that he is a very notorious home with a walker, however, here he has not been ambulatory and ready been able to help himself moving the bed. He has a home health aide for 3 hours a day 7 days a week, nurse comes every 2 weeks. She denies chest pain or any other complaints besides gout flare. Today he reports that he is no longer having the gout pain. An echocardiogram was ordered by the admitting physician. He was unable to be done due to body size and position. The tech stated that the patient was not movable, however the nurses moved him for a second attempt today with enhancement. Patient has been treated with Solu-Medrol IV 2 when necessary supplemental oxygen, IV Lasix, IV Rocephin, strict I's and O's and daily weights. Patient will be sent home with guaifenesin and a steroid taper. He will continue his by mouth Lasix dose at home. He also wears oxygen 2.5 L at home around-the- clock. Today he states he is better and is ready to go home. He was ready to go home yesterday however we are waiting on the echocardiogram to be done and resulted. Lungs are diminished throughout, most likely due to body size and mass, faint wheezing heard on left side posteriorly which is a change from yesterday when there was wheezing throughout. Patient reports that he is returned to his baseline and he is ready to go home and his family is ready for him to come home and care for him. His renal function has returned to normal limits. Vital signs are stable, labs are within normal limits. Patient is stable and appropriate for discharge. - Time Spent with Patient Total time spent providing and/or coordinating discharge services: Less than 30 minutes - Constitutional Vitals: Temp Pulse Resp BP Pulse Ox 98.0 F 72 18 95/56 96 09/01/16 15:24 09/01/16 15:24 09/01/16 15:58 09/01/16 15:24 09/01/16 15:58 General appearance: Present: cooperative, A&O X 3, morbidly obese, pleasant, no acute distress, answers questions appropriately - Head Head exam: Present: normal inspection - Eye Eye exam: Present: normal appearance, conjuntiva pink - ENT ENT exam: Present: mucous membranes moist, normal exam, normal external ear exam - Respiratory Respiratory exam: Present: decreased breath sounds, CTAB, wheezes. Absent: accessory muscle use, chest wall tenderness, rales, respiratory distress, rhonchi - Cardiovascular Cardiovascular exam: Present: RRR, +S1, +S2, systolic murmur. Absent: clicks, diastolic murmur, gallop - GI/Abdominal GI/Abdominal exam: Present: distended, normal bowel sounds, soft. Absent: hernia, hepatomegaly, tenderness - Neurological Exam Neurological exam: Present: alert, oriented X3, no focal deficits. Absent: facial droop, speech deficit
--- NOTE | 2016-09-01 17:47 | Internal Med Progress Note ---
Date of Encounter: 09/01/16 Time of Encounter: 08:30 - Assessment and plan (1) Asthma with exacerbation Current Visit: Yes Status: Acute Assessment and plan: Patient is significantly better today than he was yesterday. He says it has cough has improved although he still does have a productive cough with white sputum intermittently. He says that he is not short of breath as he was previously. Lungs still have expiratory wheezing, only and left. Right is clear and diminished. Original chest CT showed exam is limited by positioning but mild vascular congestive changes with mild interstitial edema and chronic asymmetric elevation of right diaphragm. Patient does wear oxygen at home 2 L. He is still on 3 L here at this time. His sats are within normal limits. Qualifiers: Asthma severity: unspecified severity Qualified Code(s): J45.901 - Unspecified asthma with (acute) exacerbation (2) COPD (chronic obstructive pulmonary disease) Current Visit: Yes Status: Chronic Assessment and plan: Plan as above Qualifiers: COPD type: chronic bronchitis Chronic bronchitis type: unspecified Qualified Code(s): J42 - Unspecified chronic bronchitis (3) Acute gout Current Visit: Yes Status: Acute Assessment and plan: Acute on chronic. Continue home medication. Patient states that he is not having pain today. Qualifiers: Gout site: foot Gout etiology: unspecified cause Laterality: left Qualified Code(s): M10.9 - Gout, unspecified (4) Morbid obesity with BMI of 50.0-59.9, adult Current Visit: Yes Status: Chronic Assessment and plan: Chronic. Lifestyle changes. The patient states that he is unable to independently move in his bed. I am having PT and OT evaluate him. He states that he is ambulatory at home. (5) CKD (chronic kidney disease) stage 3, GFR 30-59 ml/min Current Visit: No Status: Chronic Assessment and plan: Creatinine is within normal limits today. GFR is greater than 60. Patient will need to follow up with primary care for continued evaluation. Avoid nephrotoxins. (6) GERD (gastroesophageal reflux disease) Current Visit: Yes Status: Chronic Assessment and plan: Chronic. Continue home medications. Qualifiers: Esophagitis presence: esophagitis presence not specified Qualified Code(s) : K21.9 - Gastro-esophageal reflux disease without esophagitis (7) DVT prophylaxis Current Visit: Yes Status: Acute - Subjective Interval history: Patient was seen and assessed at about 820 this morning. He is stable and states that he feels 100% better. His respirations are easy and even. He still wearing a liters of oxygen, he wears 2.5 at home at all times. He has wheezing posteriorly on the left side very faint. Improvement over yesterday. I was prepared to send patient home and even had the discharge completed, however echocardiogram was not done until late in the afternoon, and remains unread at this time. He will be spending the night again waiting on echocardiogram results. Patient states that he has 3 hours of home health aide daily, a family member is his aide. He also states that he has a nurse visit every 2 weeks. He will need this at discharge. He says he does not need any medication refills and does not wish to see physical therapy and occupational therapy. It is still ordered and they have not been here yet either. An echocardiogram was attempted on Thursday morning, the tech said he was unable to obtain a good picture due to patient's position. I spoke with cardiology if he is suggested adding enhancement with Definity. It was ordered yesterday, test was not done until late this afternoon. Tech states that it probably will be a suboptimal study. Results pending - Constitutional Vitals: Temp Pulse Resp BP Pulse Ox 98.0 F 72 18 95/56 96 09/01/16 15:24 09/01/16 15:24 09/01/16 15:58 09/01/16 15:24 09/01/16 15:58 General appearance: Present: cooperative, A&O X 3, morbidly obese, pleasant, no acute distress, answers questions appropriately - Respiratory Respiratory exam: Present: decreased breath sounds, wheezes. Absent: rales, respiratory distress, rhonchi, stridor, tachypnea Additional comments: Lungs diminished due to body habitus. - Cardiovascular Cardiovascular exam: Present: RRR, +S1, +S2. Absent: clicks, diastolic murmur, gallop, systolic murmur - GI/Abdominal GI/Abdominal exam: Present: distended, soft. Absent: hernia, tenderness - Extremities Exam Extremities exam: Present: pedal edema, warm, radial pulses palpable and symetrical. Absent: normal inspection, tenderness - Neurological Exam Neurological exam: Present: alert, oriented X3, no focal deficits. Absent: facial droop, speech deficit Internal Medicine: Result - Labs CBC & Chem 7: 09/01/16 06:15 09/01/16 08:47 Labs: Short CBC 09/01/16 Range/Units 06:15 WBC 8.9 D (4.3-11.1) K/mcL Hgb 16.4 (12.9-16.9) g/dL Hct 48.9 (37.5-50.1) % Plt Count 187 (140-400) K/mcL Neutrophils # 7.9 (1.6-8.9) K/mcL BMP 09/01/16 09/01/16 06:15 08:47 Sodium 134 L Potassium 4.8 H 4.4 Chloride 97 L Carbon Dioxide 26 BUN 32 H D Creatinine 1.11 Glucose 193 H Calcium 9.2 - ABG Interpretation ABG results: PT/INR, D-dimer PT 11.8 Seconds (9.4-12.1) 08/31/16 02:57 Consult Discharge Plan - Plan Additional Instructions: Take your medications as directed. Take your steroid until it is gone. Resume your other medications. Follow up with your family doctor within the next week to 10 days for a follow up appointment. use your inhalers and nebulizer as directed. Return to the ER as needed for any other problems or concerns, or if you begin having more shortness of breath or if you get a fever, chills, nausea/vomiting, or chest pain. Referrals: NO,PCP [Primary Care Provider] - Prescriptions: GuaiFENesin ER [Mucinex] 600 mg PO BID PRN #30 tbbp.12hr PRN Reason: Cough predniSONE [Prednisone] 10 mg PO DAILY #31 tab.ds.pk
[2016-09-02] MEDS: MethylPREDNISolone 40 MG/ML VIAL IVP SCH ×2 (00:17→08:52)
[2016-09-02] MEDS: Ipratropium/Albuterol Neb 3 ML IH SCH ×2 (03:41→10:35)
[2016-09-02] MEDS: *HR* Heparin 5,000 UNIT/ML VIAL SQ SCH (06:08)
[2016-09-02] MEDS ORDERED: Furosemide 40 MG in 0.9 % Sodium Chloride 50 ML IVPB SCH (08:00)
[2016-09-02] MEDS ORDERED: Furosemide 40 MG TABLET PO SCH (08:45)
[2016-09-02] MEDS: Aspirin Enteric Coated 81 MG Tablet PO SCH (08:51)
[2016-09-02] MEDS: Lisinopril 20 MG TABLET PO SCH (08:51)
[2016-09-02] MEDS: Nystatin POWDER 30 GM BOTTLE TP SCH (08:53)
--- NOTE | 2016-09-02 09:11 | Discharge Summary ---
Date of Encounter: 09/02/16 Time of Encounter: 09:09 - Discharge Diagnosis (1) COPD exacerbation Priority: Primary Status: Acute (2) Acute gout Priority: Primary Status: Acute Qualifiers: Gout site: foot Gout etiology: unspecified cause Laterality: left Qualified Code(s): M10.9 - Gout, unspecified (3) Morbid obesity with BMI of 50.0-59.9, adult Priority: Secondary Status: Chronic (4) Acute and chronic respiratory failure Priority: Primary Status: Chronic Qualifiers: Respiratory failure complication: unspecified whether with hypoxia or hypercapnia Qualified Code(s): J96.20 - Acute and chronic respiratory failure , unspecified whether with hypoxia or hypercapnia (5) CKD (chronic kidney disease) stage 3, GFR 30-59 ml/min Priority: Secondary Status: Chronic (6) Asthma with exacerbation Priority: Primary Status: Acute Qualifiers: Asthma severity: unspecified severity Qualified Code(s): J45.901 - Unspecified asthma with (acute) exacerbation (7) CHF (congestive heart failure) Priority: Primary Status: Chronic Qualifiers: Congestive heart failure type: diastolic Congestive heart failure chronicity: acute on chronic Qualified Code(s): I50.33 - Acute on chronic diastolic (congestive) heart failure - Discharge Medications Prescriptions: Cefdinir [Omnicef] 300 mg PO DAILY #2 capsule Furosemide [Lasix] 40 mg PO BIDDIURETIC #60 tablet GuaiFENesin ER [Mucinex] 600 mg PO BID PRN #30 tbbp.12hr PRN Reason: Cough Nystatin POWDER [Nystop] 1 appl TP BID #2 bottle predniSONE [PredniSONE] 40 mg PO DAILY #6 tablet Home Medications: Albuterol Neb [Proventil Neb] 3 ml IH Q6H PRN 04/01/16 [History] Albuterol Sulfate [Ventolin Hfa] 2 puff IH Q6H PRN 04/01/16 [History] Aspirin [Lo-Dose Aspirin EC] 81 mg PO DAILY 04/01/16 [History] Enalapril Maleate [Vasotec] 20 mg PO DAILY 04/01/16 [History] Ipratropium/Albuterol Sulfate [Combivent Respimat Inhal [place]] 1 puff IH QID [History] Allopurinol [Zyloprim 100 MG] 100 mg PO DAILY 08/30/16 [History] Omeprazole [PriLOSEC] 20 mg PO DAILY 08/30/16 [History] GuaiFENesin ER [Mucinex] 600 mg PO BID PRN #30 tbbp.12hr 09/01/16 [Rx] Cefdinir [Omnicef] 300 mg PO DAILY #2 capsule 09/02/16 [Rx] Furosemide [Lasix] 40 mg PO BIDDIURETIC #60 tablet 09/02/16 [Rx] Nystatin POWDER [Nystop] 1 appl TP BID #2 bottle 09/02/16 [Rx] predniSONE [PredniSONE] 40 mg PO DAILY #6 tablet 09/02/16 [Rx] Allergies/Adverse Reactions: Allergies Sulfa (Sulfonamide Antibiotics) Allergy (Verified 04/01/16 10:50) See Comments PATIENT UNSURE OF REACTION- Procedures/tests Complete & Pending: Procedures Performed prior 72 hours Category Date Time Status EV echocardiogram w enhance Routine Y 09/01/16 13:58 Completed Date of admission: 08/30/16 13:46 Primary care physician: PCP NO Consults: 08/30/16 14:04 consult to thermograph operator [Consult to Nutrition] [CONS] Routine Comment: Patient currently has BMI of 57.4 Consulting Provider: NUTRITION Reason for Dietary Consult: Diet Education 08/31/16 14:01 Consult to Occupational Therapy [CONS] Routine Comment: Evaluate, develop and implement POC Reason for Consult: evaluation Consult to Physical Therapy [CONS] Routine Comment: Evaluate, develop and implement POC Reason for Consult: evaluation 09/02/16 08:47 Consult to Bindery Chief [CONS] Routine Reason for SW Consult: DC planning. Discharging clinician: Nima Liriano Anticipated date of discharge: 09/02/16 - Patient Status Disposition: Home Health Service Condition: Good Functional capacity at discharge: uses cane/walker Overall status at discharge: patient is progressing back to baseline - Discharge Instructions Instructions: Furosemide (By mouth), Decongestant/Expectorant (By mouth), Prednisone (By mouth), Nystatin (On the skin), Cefdinir (By mouth), Asthma (DC) , Chronic Obstructive Pulmonary Disease (DC) Follow Up With: Caryl Wang MD [Non-Partnered Physician] - 09/12/16 9:30 am Additional Instructions: Take your medications as directed. Take your steroid until it is gone. Resume your other medications. Follow up with your family doctor within the next week to 10 days for a follow up appointment. use your inhalers and nebulizer as directed. Return to the ER as needed for any other problems or concerns, or if you begin having more shortness of breath or if you get a fever, chills, nausea/vomiting, or chest pain. - Diet and Activity Activity: resume usual activities as tolerated Diet: diabetic diet, low fat, low cholesterol, low salt diet Interval History: See below Hospital course: Mr. Mahoney is a 65 year old male with past medical history of morbid obesity, hypertension, chronic respiratory failure on home oxygen, bronchial asthma, COPD. Patient presented to the emergency room with complaints of shortness of breath and cough, on admission he was fine to to be dyspneic and slightly more hypoxic than at baseline. Chest x-ray revealed interstitial edema. Complete blood count and chemistry were unremarkable. Patient was admitted and started on intravenous steroids, nipples treatment, and ceftriaxone for possible bronchitis. Patient was also started with intravenous Lasix due to chest x-ray finding of mild vascular congestive changes. Patient had no pedal edema on admission, and no JVD. He has a prior history of CHF. I/O since admission negatve -6L He received 4 days of IV ceftriaxone for bronchitis, he will be discharged on one more day of Omnicef Echocardiogram was done which revealed very poor study, unable to visualize any segments due to body habitus, will recommend repeat as out-patient Patient is stable for discharge home, he is back to baseline, he is on the dose of his home oxygen, patient is morbidly obese and mostly bed-bound, physical therapy and occupational therapy had been consulted in admission, social work supervisor has been consulted. Patient is educated about addition of Lasix to his current home medications, hydrochlorothiazide discontinued. Follow-up with PCP within one week, to de-escalate dose of lasix and monitor renal function and weight changes Plan of care discussed with patient, verbalized understanding - Time Spent with Patient Total time spent providing and/or coordinating discharge services: Less than 30 minutes - Constitutional Vitals: Temp Pulse Resp BP Pulse Ox 97.8 F 73 16 117/62 93 09/02/16 07:02 09/02/16 07:02 09/02/16 07:02 09/02/16 07:02 09/02/16 07:02 General appearance: Present: cooperative, A&O X 3, morbidly obese, pleasant, no acute distress, answers questions appropriately Exam: VSS Morbidly obese, not in any form of distress, speaks full sentences Neuro alert and oriented 3, was all extremities equally. HEENT: Moist oral mucosa, not cyanotic, no scleral icterus. Chest is clear to auscultation bilaterally Heart sounds S1, S2only, no m/g/r, no JVD Abdomen is morbidly obese non-tender, difficult to assess organomegaly. Extremities: no ulcers, no pedal edema.
[2016-09-02 11:09] VITALS: BP 116/55
--- NOTE | 2016-09-02 12:42 | Physician Discharge Referral ---
Home Health/Hosp Referral Info Transfer to: Home Health Attending Provider: Heri Provider in Charge Post Discharge: PCP - Diagnosis (1) COPD exacerbation Priority: Primary Status: Acute (2) Acute gout Priority: Primary Status: Acute (3) Morbid obesity with BMI of 50.0-59.9, adult Priority: Secondary Status: Chronic (4) Acute and chronic respiratory failure Priority: Primary Status: Chronic (5) CKD (chronic kidney disease) stage 3, GFR 30-59 ml/min Priority: Secondary Status: Chronic (6) Asthma with exacerbation Priority: Primary Status: Acute (7) CHF (congestive heart failure) Priority: Primary Status: Chronic - Respiratory Orders Oxygen / L per min (2-3 L /min, target O2 sat 92%) Smoking Cessation: Smoking cessation has been advised. For more information, call the [place] Tobacco Quit Line at 6-480-MRLQ-NOW. - Diet/Nutrition Diet/Nutrition Orders: Renal, Cardiac - Activity Activity Orders: Up ad nadeen, Walker - Services Needed Following services are medically necessary services: Nursing, Home Health Aide - Transfer Medications Prescriptions: Cefdinir [Omnicef] 300 mg PO DAILY #2 capsule Furosemide [Lasix] 40 mg PO BIDDIURETIC #60 tablet GuaiFENesin ER [Mucinex] 600 mg PO BID PRN #30 tbbp.12hr PRN Reason: Cough Nystatin POWDER [Nystop] 1 appl TP BID #2 bottle predniSONE [PredniSONE] 40 mg PO DAILY #6 tablet Home Medications: Albuterol Neb [Proventil Neb] 3 ml IH Q6H PRN 04/01/16 [History] Albuterol Sulfate [Ventolin Hfa] 2 puff IH Q6H PRN 04/01/16 [History] Aspirin [Lo-Dose Aspirin EC] 81 mg PO DAILY 04/01/16 [History] Enalapril Maleate [Vasotec] 20 mg PO DAILY 04/01/16 [History] Ipratropium/Albuterol Sulfate [Combivent Respimat Inhal [place]] 1 puff IH QID [History] Allopurinol [Zyloprim 100 MG] 100 mg PO DAILY 08/30/16 [History] Omeprazole [PriLOSEC] 20 mg PO DAILY 08/30/16 [History] GuaiFENesin ER [Mucinex] 600 mg PO BID PRN #30 tbbp.12hr 09/01/16 [Rx] Cefdinir [Omnicef] 300 mg PO DAILY #2 capsule 09/02/16 [Rx] Furosemide [Lasix] 40 mg PO BIDDIURETIC #60 tablet 09/02/16 [Rx] Nystatin POWDER [Nystop] 1 appl TP BID #2 bottle 09/02/16 [Rx] predniSONE [PredniSONE] 40 mg PO DAILY #6 tablet 09/02/16 [Rx] Allergies/Adverse Reactions: Allergies Sulfa (Sulfonamide Antibiotics) Allergy (Verified 04/01/16 10:50) See Comments PATIENT UNSURE OF REACTION- Certification: Further, I certify that my clinical findings support that this patient is homebound (i.e. absences from home require considerable and taxing effort and are for medical reasons or yarsanism services or infrequently or short duration when for other reasons) because: Homebound Reason: Patient requires assistance of a person or device to safely leave home Attestation: My signature below is to certify that this patient is under my care and that I, or nurse practitioner, or a physician's child life assistant working with me, has a face-to -face encounter with this patient.
--- NOTE | 2016-09-02 17:13 | Electrocardiograph Report ---
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
== END 2016-09-02 13:40 | disposition home health service (06) ==
LOC: EMEROO 12:08 → 3BNU 12:08 → SUATTDRO 13:46 → 3BNU 14:09
PROVIDERS: ADMIT Nurse Practitioner Family; ATTEND Internal Medicine

== ENCOUNTER 2016-10-13 21:14 | Inpatient (IN) ==
[2016-10-13] MEDS ORDERED: predniSONE 20 MG TABLET PO ONE (21:47)
[2016-10-13] MEDS ORDERED: Ipratropium/Albuterol Neb 3 ML IH ONE (21:47)
--- NOTE | 2016-10-13 21:48 | Emergency Department Note ---
Disposition Clinical Impression: Dyspnea on exertion Chest pain Qualifiers: Chest pain type: unspecified Qualified Code(s): R07.9 - Chest pain, unspecified Disposition: Admitted As Inpatient Condition: Good Time of Disposition: 01:04 SOB HPI - General Chief Complaint: ED Shortness of Breath/Dyspnea Stated Complaint: ADRIENNE Time Seen by Provider: 10/13/16 21:30 Source: patient, EMS Mode of arrival: EMS Limitations: no limitations Nursing Notes Reviewed: Yes Vital Signs Reviewed: Yes - History of Present Illness 66-year-old male history of COPD on 2.5 L home oxygen supplementation, hypertension, hyperlipidemia presents with difficulty breathing. Symptoms started at noon this morning having a hard time catching his breath. He has had a productive cough sputum color white to yellow. Denies any fevers but reports chills. He has been using his inhalers more frequently with no relief. Last time he had similar symptoms she was diagnosed with a COPD exacerbation requiring hospitalization. States this feels similar to that. He has some child chest tightness, denies any radiation of this discomfort. Denies any nausea or vomiting. Denies any history of cardiac ischemic disease. She was last hospitalist 2 months ago. Denies any recent travel, active cancer, blood clots. Will give him breathing treatment, steroids, chest x-ray, EKG in basic labs. Patients in agreement with plan. He lives at home with his niece states he is very independent. He is normally able to ambulate with a walker. - Related Data Home Medications Medication Instructions Recorded Confirmed Albuterol Neb [Proventil Neb] 3 ml IH Q6H PRN 04/01/16 10/14/16 Albuterol Sulfate [Ventolin Hfa] 2 puff IH Q6H PRN 04/01/16 10/14/16 Aspirin [Lo-Dose Aspirin EC] 81 mg PO DAILY 04/01/16 10/14/16 Enalapril Maleate [Vasotec] 20 mg PO DAILY 04/01/16 10/14/16 Ipratropium/Albuterol Sulfate 1 puff IH QID 04/01/16 10/14/16 [Combivent Respimat Inhal [place]] Allopurinol [Zyloprim 100 MG] 100 mg PO DAILY 08/30/16 10/14/16 Omeprazole [PriLOSEC] 20 mg PO DAILY 08/30/16 10/14/16 Oxygen 2.5 l .ROUTE CONT 10/14/16 10/14/16 Previous Rx's Medication Instructions Recorded GuaiFENesin ER [Mucinex] 600 mg PO BID PRN #30 tbbp.12hr 09/01/16 Furosemide [Lasix] 40 mg PO BIDDIURETIC #60 tablet 09/02/16 Nystatin POWDER [Nystop] 1 appl TP BID #2 bottle 09/02/16 Allergies Allergy/AdvReac Type Severity Reaction Status Date / Time Sulfa (Sulfonamide Allergy See Verified 04/01/16 10:50 Antibiotics) Comments All systems ED: reviewed and negative except as stated. Constitutional: Reports: chills. Denies: fever Eyes: Denies: vision change Cardiovascular: Reports: chest pain, dyspnea on exertion Respiratory: Reports: cough, dyspnea Gastrointestinal: Denies: abdominal pain, nausea, vomiting, diarrhea Genitourinary: Denies: urgency, dysuria Musculoskeletal: Denies: back pain Integumentary: Denies: rash, abrasion Neurological: Denies: headache Past Medical History - Past Medical History Attestation: Yes The following information was validated with the patient. Source: patient Medical history: Reports: arthritis, asthma, COPD, hypertension, osteoporosis, other Surgical history: Reports: cholecystectomy Psychiatric history: Reports: no psych history - Social History Smoking Status: Former smoker Smokeless Tobacco Status: No Alcohol use: Reports: none Drug use: Reports: none Physical Exam - General Limitations: no limitations General appearance: alert, in no apparent distress, obese - Head Head exam: atraumatic, normocephalic, normal inspection - Eye Eye exam: Present: normal appearance, PERRL, EOMI - ENT ENT exam: normal exam, normal oropharynx, mucous membranes moist - Expanded ENT Exam Teeth exam: Present: dental caries - Neck Neck exam: Present: normal inspection, full ROM, trachea midline. Absent: tenderness - Chest Chest inspection: Present: normal inspection, symmetric chest wall rise. Absent : tenderness - Respiratory Respiratory exam: Present: normal lung sounds bilaterally, wheezes (Expiratory) . Absent: respiratory distress - Cardiovascular Cardiovascular exam: Present: regular rate, normal rhythm, normal heart sounds - Abdominal Exam Abdominal exam: Present: soft (Obese abdomen), Non-Tender, normal bowel sounds. Absent: tenderness, distention, guarding, rebound, rigidity - Extremities Exam Extremities exam: Present: normal inspection, full ROM, normal capillary refill. Absent: tenderness, pedal edema, calf tenderness - Back Exam Back exam: Present: normal inspection, full ROM. Absent: tenderness - Neurological Exam Neurological exam: Present: alert, oriented X3 - Psychiatric Psychiatric exam: Present: normal affect, normal mood - Skin Skin exam: Present: warm, dry, intact, normal color Course Course Narrative: 66 year old male with COPD presents with dyspnea worse on exertion. Mild expiratory wheezes on examination. He is 92% on 3L oxygenation. Exam is otherwise unremarkable. Chest pain workup initiated with BNP, duonebs, and steroid for possible COPD exacerbation. Patient and family are concerned that he may require admission. Disposition pending workup. Will reassess. - Reevaluation(s) Reevaluation #1: Repeat lung examination, clear to auscultation after breathing treatments. Continues to appear dyspneic on home oxygen supplementation. Labs reviewed and were unremarkable. Troponin negative. BNP unremarkable. EKG does not reveal any acute ischemic changes. He continues to complain of chest tightness. HEART score of 4. Concern for possible ACS will admit for further evaluation and observation. Patient is in agreement with plan. Impression is dyspnea on exertion and chest pain. - Consultations Consultation #1: Spoke with on-call hospitalist darlyn Medrano to admit for chest pain R/O ACS and dyspnea on exertion. No further orders at this time Vital Signs Temperature 98.3 F 10/13/16 21:18 Pulse Rate 98 10/13/16 21:18 Respiratory Rate 16 10/13/16 21:18 Blood Pressure 132/66 10/13/16 21:18 O2 Sat by Pulse Oximetry 97 10/13/16 21:18 Temperature 97.8 F 10/14/16 15:22 Pulse Rate 98 10/14/16 15:22 Respiratory Rate 16 10/14/16 15:59 Blood Pressure 106/62 10/14/16 15:22 O2 Sat by Pulse Oximetry 95 10/14/16 15:59 Oxygen Delivery Oxygen Delivery Room Air Shortness of Breath/Dyspnea - Medical Records Medical records reviewed: Yes I reviewed the patient's medical records. - Lab Data Lab results reviewed: Yes I reviewed the patient's lab results. Result diagrams: 10/14/16 09:08 10/14/16 10:21 Lab Results 10/13/16 10/13/1610/13/17 Range/Units 22:29 22:29 22:29 WBC 7.5 (4.3-11.1) K/mcL RBC 4.88 (4.19-5.50) M/mcL Hgb 14.5 (12.9-16.9) g/dL Hct 44.6 (37.5-50.1) % MCV 91.4 (83.0-100.0) fL MCH 29.7 (28.0-33.3) pg MCHC 32.5 (31.6-35.5) g/dL RDW 14.8 H (11.5-14.5) % Plt Count 167 (140-400) K/mcL MPV 9.1 L (9.4-12.4) fL Immature Gran % 2.1 (0-4) % Seg Neutrophils % 64.9 % Lymphocytes % 20.3 % Monocytes % 10.9 % Eosinophils % 1.1 % Basophils % 0.7 % Neutrophils # 4.9 (1.6-8.9) K/mcL Lymphocytes # 1.5 (0.6-4.6) K/mcL Monocytes # 0.8 (0.0-1.3) K/mcL Eosinophils # 0.1 (0.0-0.6) K/mcL Basophils # 0.1 (0.0-0.2) K/mcL D-Dimer (0-500) ng/mLFEU Sodium 137 (136-145) mEq/L Potassium 4.4 (3.5-4.5) mEq/L Chloride 105 (98-109) mEq/L Carbon Dioxide 25 (19-29) mEq/L BUN 19 (8-26) mg/dL Creatinine 1.12 (0.72-1.25) mg/dL Est GFR ( Amer) > 60 (> 60) Est GFR (Non-Af Amer) > 60 (> 60) BUN/Creatinine Ratio 17 (6-26) Glucose 122 H (70-99) mg/dL Calculated Osmolality 288 (280-300) Calcium 9.2 (8.6-10.8) mg/dL Creatine Kinase (30-200) Units/L Troponin I 0.01 (0-0.03) ng/mL B-Natriuretic Peptide (0-100) pg/mL Specimen Rejected 10/13/16 10/14/16 10/14/16 Range/Units 22:29 03:32 03:32 WBC (4.3-11.1) K/mcL RBC (4.19-5.50) M/mcL Hgb (12.9-16.9) g/dL Hct (37.5-50.1) % MCV (83.0-100.0) fL MCH (28.0-33.3) pg MCHC (31.6-35.5) g/dL RDW (11.5-14.5) % Plt Count (140-400) K/mcL MPV (9.4-12.4) fL Immature Gran % (0-4) % Seg Neutrophils % % Lymphocytes % % Monocytes % % Eosinophils % % Basophils % % Neutrophils # (1.6-8.9) K/mcL Lymphocytes # (0.6-4.6) K/mcL Monocytes # (0.0-1.3) K/mcL Eosinophils # (0.0-0.6) K/mcL Basophils # (0.0-0.2) K/mcL D-Dimer 653 H (0-500) ng/mLFEU Sodium (136-145) mEq/L Potassium (3.5-4.5) mEq/L Chloride (98-109) mEq/L Carbon Dioxide (19-29) mEq/L BUN (8-26) mg/dL Creatinine (0.72-1.25) mg/dL Est GFR ( Amer) (> 60) Est GFR (Non-Af Amer) (> 60) BUN/Creatinine Ratio (6-26) Glucose (70-99) mg/dL Calculated Osmolality (280-300) Calcium (8.6-10.8) mg/dL Creatine Kinase 139 (30-200) Units/L Troponin I (0-0.03) ng/mL B-Natriuretic Peptide < 10 (0-100) pg/mL Specimen Rejected 10/14/16 10/14/16 10/14/16 Range/Units 03:32 09:08 09:08 WBC 4.4 (4.3-11.1) K/mcL RBC 4.83 (4.19-5.50) M/mcL Hgb 14.2 (12.9-16.9) g/dL Hct 43.5 (37.5-50.1) % MCV 90.1 (83.0-100.0) fL MCH 29.4 (28.0-33.3) pg MCHC 32.6 (31.6-35.5) g/dL RDW 14.5 (11.5-14.5) % Plt Count 172 (140-400) K/mcL MPV 9.2 L (9.4-12.4) fL Immature Gran % 3.4 (0-4) % Seg Neutrophils % 80.8 % Lymphocytes % 12.6 % Monocytes % 2.5 % Eosinophils % 0.0 % Basophils % 0.7 % Neutrophils # 3.5 (1.6-8.9) K/mcL Lymphocytes # 0.6 (0.6-4.6) K/mcL Monocytes # 0.1 (0.0-1.3) K/mcL Eosinophils # 0.0 (0.0-0.6) K/mcL Basophils # 0.0 (0.0-0.2) K/mcL D-Dimer (0-500) ng/mLFEU Sodium (136-145) mEq/L Potassium (3.5-4.5) mEq/L Chloride (98-109) mEq/L Carbon Dioxide (19-29) mEq/L BUN (8-26) mg/dL Creatinine (0.72-1.25) mg/dL Est GFR ( Amer) (> 60) Est GFR (Non-Af Amer) (> 60) BUN/Creatinine Ratio (6-26) Glucose (70-99) mg/dL Calculated Osmolality (280-300) Calcium (8.6-10.8) mg/dL Creatine Kinase (30-200) Units/L Troponin I 0.02 (0-0.03) ng/mL B-Natriuretic Peptide (0-100) pg/mL Specimen Rejected Hemolyzed 10/14/16 Range/Units 10:21 WBC (4.3-11.1) K/mcL RBC (4.19-5.50) M/mcL Hgb (12.9-16.9) g/dL Hct (37.5-50.1) % MCV (83.0-100.0) fL MCH (28.0-33.3) pg MCHC (31.6-35.5) g/dL RDW (11.5-14.5) % Plt Count (140-400) K/mcL MPV (9.4-12.4) fL Immature Gran % (0-4) % Seg Neutrophils % % Lymphocytes % % Monocytes % % Eosinophils % % Basophils % % Neutrophils # (1.6-8.9) K/mcL Lymphocytes # (0.6-4.6) K/mcL Monocytes # (0.0-1.3) K/mcL Eosinophils # (0.0-0.6) K/mcL Basophils # (0.0-0.2) K/mcL D-Dimer (0-500) ng/mLFEU Sodium 135 L (136-145) mEq/L Potassium 4.4 (3.5-4.5) mEq/L Chloride 103 (98-109) mEq/L Carbon Dioxide 22 (19-29) mEq/L BUN 20 (8-26) mg/dL Creatinine 1.16 (0.72-1.25) mg/dL Est GFR ( Amer) > 60 (> 60) Est GFR (Non-Af Amer) > 60 (> 60) BUN/Creatinine Ratio 17 (6-26) Glucose 248 H (70-99) mg/dL Calculated Osmolality 291 (280-300) Calcium 9.0 (8.6-10.8) mg/dL Creatine Kinase (30-200) Units/L Troponin I (0-0.03) ng/mL B-Natriuretic Peptide (0-100) pg/mL Specimen Rejected - Radiology Data Radiology results reviewed: Yes I reviewed the patient's radiology results. Chest X-Ray 10/13/16 21:38 IMPRESSION: 1. Mild cardiomegaly and vascular congestive changes. 2. Low lung volumes. 3. Chronic asymmetric elevation of the right diaphragm. D/ / 10/13/2016 23:05:36 Jared Cordero MD / [facility] Interpreting Provider: Jared Cordero MD - EKG Data EKG attestation: Yes I reviewed and interpreted this EKG. EKG results narrative: EKG performed 2214 normal sinus rhythm with right bundle branch block 96 bpm, left axis deviation, there are no ST elevations or depressions. Compared to old EKG performed 08/30/2016 shows consistent findings right bundle branch block with consistent findings no changes. No acute ischemic changes. Attestation Statement - Attestation Attestation: I personally interviewed and examined this patient and my medical decision- making was reviewed with the ED Resident Physician, Dr. Moreira I agree with the documented findings, disposition and treatment plan as described except to the extent set forth below. Pt is a 66 yo wm, with multiple co-morbidities including COPD (o2 requiring), CAD, HTN, hyperlipidemia, with c/o grad worsening SOB with exertion. Pt arrives with chest "tightness" and nonprod cough. Agree with PE as documented. EKG with no acute findings. CXR wnl. Pt's sxs concerning for exertional dyspnea and fatigue. Will admit for further eval. VSS.
[2016-10-13 22:36] LABS: Basophils # 0.1 K/mcL (0.0-0.2); Basophils % 0.7 %; Eosinophils # 0.1 K/mcL (0.0-0.6); Eosinophils % 1.1 %; Hematocrit 44.6 % (37.5-50.1); Hemoglobin 14.5 g/dL (12.9-16.9); Immature Granulocytes % 2.1 % (0-4); Lymphocytes # 1.5 K/mcL (0.6-4.6); Lymphocytes % 20.3 %; Mean Corpuscular HGB Conc 32.5 g/dL (31.6-35.5); Mean Corpuscular Hemoglobin 29.7 pg (28.0-33.3); Mean Corpuscular Volume 91.4 fL (83.0-100.0); Mean Platelet Volume 9.1 fL (9.4-12.4); Monocytes # 0.8 K/mcL (0.0-1.3); Monocytes % 10.9 %; Neutrophils # 4.9 K/mcL (1.6-8.9); Platelet Count 167 K/mcL (140-400); Red Blood Count 4.88 M/mcL (4.19-5.50); Red Cell Distribution Width 14.8 % (11.5-14.5); Segmented Neutrophils % 64.9 %
[2016-10-13 22:48] LABS: BUN/Creatinine Ratio 17 (6-26); Blood Urea Nitrogen 19 mg/dL (8-26); Calcium 9.2 mg/dL (8.6-10.8); Carbon Dioxide 25 mEq/L (19-29); Chloride 105 mEq/L (98-109); Glucose 122 mg/dL (70-99); Osmolality,Calculated 288 (280-300); Potassium 4.4 mEq/L (3.5-4.5); Sodium 137 mEq/L (136-145); eGFR For African Americans > 60 (> 60); eGFR For Non-African Americans > 60 (> 60)
[2016-10-13] MEDS ORDERED: Aspirin 81 MG TAB.CHEW PO STA (23:22)
--- NOTE | 2016-10-14 00:44 | Internal Med History&Physical ---
Date of Encounter: 10/14/16 Time of Encounter: 00:41 Assessment and Plan (1) Acute bronchitis Current visit: Yes Status: Acute I will start the patient on his duonebs [id number] oral steroids and azithromycin. Sputum culture. Qualifiers: Qualified Code(s): J20.9 - Acute bronchitis, unspecified (2) Diastolic CHF Current visit: Yes Status: Acute Lasix 40 mg IV daily. Qualifiers: Qualified Code(s): I50.30 - Unspecified diastolic (congestive) heart failure (3) Hypoxia Current visit: Yes Status: Acute Likely related to his COPD and acute bronchitis. He dumped 1/2 L of oxygen at home. However patient is high risk for PE. He is wheelchair-bound and sedentary. I will check the D-dimer and if elevated CTA will be performed through a pulmonary embolism. Internal Medicine - H&P: HPI Chief complaint: sob History of present illness: Mr. Mahoney is a 66 year old male with multiple medical problems including COPD on 1/2 L nasal oxygen presents to the emergency room today with a complaint shortness of breath. For the past few days patient has been having increasing shortness of breath where he is unable to breathe with any minimal exertion, productive cough of yellowish sputum. Patient is wheelchair-bound minimally ambulates. No prior history of DVT or pulmonary embolism. No fevers or chills. Past Med Surg Social Fam HX - Past Medical History Medical history: arthritis, asthma, COPD, hypertension, osteoporosis, other Psychiatric history: no psych history - Past Surgical History Surgical History: cholecystectomy - Social History Smoking Status: Former smoker Smokeless Tobacco Status: No Alcohol use: none Drug use: none - Family History Mother Family Member Ethnicity: Non- Twin of Family Member: Yes Living Status: Hx Family Cardiac Disorders: Yes Hx Family Respiratory Disorders: Yes (COPD) Hx Family Cancer: No Hx Family GI Disorders: No Hx Family Endocrine Disorder: No Hx Family Neuromuscular Disorders: No Hx Family Neurologic Disorders: No Hx Family HEENT Disorders: No Hx Family Autoimmune Disorders: No Father Family Member Ethnicity: Non- Living Status: Brother Family Member Ethnicity: Non- Living Status: Still Living Hx Family Respiratory Disorders: Yes (Lung disease/COPD) Sister Family Member Ethnicity: Non- Living Status: Still Living Hx Family Endocrine Disorder: Yes (DM) Internal Medicine - H&P: Meds Albuterol Neb [Proventil Neb] 3 ml IH Q6H PRN 04/01/16 [History] Albuterol Sulfate [Ventolin Hfa] 2 puff IH Q6H PRN 04/01/16 [History] Aspirin [Lo-Dose Aspirin EC] 81 mg PO DAILY 04/01/16 [History] Enalapril Maleate [Vasotec] 20 mg PO DAILY 04/01/16 [History] Ipratropium/Albuterol Sulfate [Combivent Respimat Inhal [place]] 1 puff IH QID [History] Allopurinol [Zyloprim 100 MG] 100 mg PO DAILY 08/30/16 [History] Omeprazole [PriLOSEC] 20 mg PO DAILY 08/30/16 [History] GuaiFENesin ER [Mucinex] 600 mg PO BID PRN #30 tbbp.12hr 09/01/16 [Rx] Cefdinir [Omnicef] 300 mg PO DAILY #2 capsule 09/02/16 [Rx] Furosemide [Lasix] 40 mg PO BIDDIURETIC #60 tablet 09/02/16 [Rx] Nystatin POWDER [Nystop] 1 appl TP BID #2 bottle 09/02/16 [Rx] predniSONE [PredniSONE] 40 mg PO DAILY #6 tablet 09/02/16 [Rx] Allergies Sulfa (Sulfonamide Antibiotics) Allergy (Verified 04/01/16 10:50) See Comments PATIENT UNSURE OF REACTION- All Systems PM: A 10-system review of systems was performed and is negative for pertinent findings except as documented above in the HPI. Review of systems: 10 point review of systems is negative except for HPI - Constitutional Vitals: Temp Pulse Resp BP Pulse Ox 98.3 F 102 18 101/64 93 10/13/16 21:18 10/13/16 23:51 10/13/16 23:51 10/13/16 23:51 10/13/16 23:51 Exam: Gen.: patient is alert oriented times 3 no distress cardiac: normal S1 S2 no additional sounds or murmurs chest: no active wheezing or bronchial breathing abdomen soft nontender nondistended normal bowel sounds lower extremity trace swelling. Neuro: no new focal deficits Internal Med - H&P Results - Labs CBC & Chem 7: 10/13/16 22:29 10/13/16 22:29
[2016-10-14] MEDS: Azithromycin 500 MG in D5% in Water 250 ML IVPB SCH (01:42)
[2016-10-14] MEDS: Furosemide 40 MG/4 ML VIAL IVP SCH ×2 (02:02→09:36)
[2016-10-14] MEDS: Ipratropium/Albuterol Neb 3 ML IH SCH ×6 (05:00→23:25)
[2016-10-14] MEDS: *HR* Enoxaparin 40 MG/0.4 ML SYRINGE SQ SCH (06:29)
--- NOTE | 2016-10-14 08:56 | Internal Med Progress Note ---
<Jose Dill - Last Filed: 10/14/16 10:41> Date of Encounter: 10/14/16 Time of Encounter: 08:53 - Assessment and plan (1) COPD exacerbation Current Visit: No Status: Acute Assessment and plan: Sputum cultures pending. CTA negative for PE. Scheduled duonebs, oral steroids, azithromycin ordered. (2) Diastolic CHF Current Visit: Yes Status: Chronic Assessment and plan: Pt treated with IV lasix (3) Hypoxia Current Visit: Yes Status: Acute Assessment and plan: CTA negative for PE Likely secondary to COPD exacerbation/bronchitis. (4) Super obese Current Visit: Yes Status: Chronic (5) DVT prophylaxis Current Visit: Yes Status: Acute Assessment and plan: Lovenox - Subjective Interval history: patient seen and examined at bedside. He states that he is breathing much better than he was on arrival. He says that he has been urinating Appropriately and without trouble. He had no acute complaints. - Constitutional Vitals: Temp Pulse Resp BP Pulse Ox 97.9 F 89 18 101/64 93 10/14/16 07:42 10/14/16 07:42 10/14/16 07:48 10/14/16 07:42 10/14/16 07:48 - Head Head exam: Present: atraumatic, normocephalic - Eye Eye exam: Present: PERRL, conjuntiva pink, sclera anicteric Pupils: Present: PERRL - Neck Neck exam general surgery: Present: supple, trachea midline. Absent: lymphadenopathy - Respiratory Respiratory exam: Present: CTAB. Absent: accessory muscle use, rales, rhonchi, wheezes - Cardiovascular Cardiovascular exam: Present: RRR, +S1, +S2. Absent: diastolic murmur, gallop, rubs, systolic murmur - GI/Abdominal GI/Abdominal exam: Present: normal bowel sounds, soft, no peritoneal signs. Absent: distended, tenderness - Extremities Exam Extremities exam: Present: warm, radial pulses palpable and symetrical. Absent : calf tenderness, cyanotic, pedal edema - Neurological Exam Neurological exam: Present: CN II-XII intact, oriented X3, no focal deficits. Absent: pronater drift, facial droop, speech deficit - Skin Skin exam: Present: dry, intact Internal Medicine: Result - Labs CBC & Chem 7: 10/14/16 09:08 10/13/16 22:29 Labs: Cardiac Enzymes 10/14/16 Range/Units 03:32 Troponin I 0.02 (0-0.03) ng/mL - ABG Interpretation ABG results: PT/INR, D-dimer D-Dimer 653 ng/mLFEU (0-500) H 10/14/16 03:32 - Impressions Impressions Chest CTA 10/14/16 05:13 IMPRESSION: No pulmonary embolism. Patchy ground-glass opacities are identified in the lungs, greatest in the right upper lobe suspicious for an atypical infectious process, or less likely related to asymmetric pulmonary edema. No lymphadenopathy or spiculated lung mass is seen in the chest. D/ / Jared Patricia MD / Jared Patricia MD Interpreting Provider: Jared Patricia MD Consult Discharge Plan - Plan Referrals: NO,PCP [Primary Care Provider] - <Estuardo Gonzalez H - Last Filed: 10/14/16 13:14> Date of Encounter: 10/14/16 - Constitutional Vitals: Temp Pulse Resp BP Pulse Ox 97.6 F 74 16 102/67 95 10/14/16 11:49 10/14/16 11:49 10/14/16 11:49 10/14/16 11:49 10/14/16 11:49 Internal Medicine: Result - Labs CBC & Chem 7: 10/14/16 09:08 10/14/16 10:21 Labs: Short CBC 10/14/16 Range/Units 09:08 WBC 4.4 (4.3-11.1) K/mcL Hgb 14.2 (12.9-16.9) g/dL Hct 43.5 (37.5-50.1) % Plt Count 172 (140-400) K/mcL Neutrophils # 3.5 (1.6-8.9) K/mcL BMP 10/14/16 10:21 Sodium 135 L Potassium 4.4 Chloride 103 Carbon Dioxide 22 BUN 20 Creatinine 1.16 Glucose 248 H Calcium 9.0 Cardiac Enzymes 10/14/16 Range/Units 03:32 Troponin I 0.02 (0-0.03) ng/mL - ABG Interpretation ABG results: PT/INR, D-dimer D-Dimer 653 ng/mLFEU (0-500) H 10/14/16 03:32 - Impressions Impressions Chest CTA 10/14/16 05:13 IMPRESSION: No pulmonary embolism. Patchy ground-glass opacities are identified in the lungs, greatest in the right upper lobe suspicious for an atypical infectious process, or less likely related to asymmetric pulmonary edema. No lymphadenopathy or spiculated lung mass is seen in the chest. D/ / Jared Patricia MD / Jared Patricia MD Interpreting Provider: Jared Patricia MD - Attending Attestation Acute on chronic hypoxic respiratory failure secondary to acute COPD exacerbation due to bronchitis viral versus bacterial possible atypical pneumonia Continue prednisone and azithromycin, DuoNeb's May discharge in the morning if more stable I examined this patient and my medical decision-making was reviewed with the [employer] SUPERVISOR/PA/Advanced Practice Nurse/Resident Physician. I agree with the documented findings, disposition and treatment plan as described except to the extent set forth below.
[2016-10-14] MEDS ORDERED: predniSONE 20 MG TABLET PO SCH (09:00)
[2016-10-14 09:22] LABS: Basophils % 0.7 %; Hematocrit 43.5 % (37.5-50.1); Hemoglobin 14.2 g/dL (12.9-16.9); Immature Granulocytes % 3.4 % (0-4); Lymphocytes # 0.6 K/mcL (0.6-4.6); Lymphocytes % 12.6 %; Mean Corpuscular HGB Conc 32.6 g/dL (31.6-35.5); Mean Corpuscular Hemoglobin 29.4 pg (28.0-33.3); Mean Corpuscular Volume 90.1 fL (83.0-100.0); Mean Platelet Volume 9.2 fL (9.4-12.4); Monocytes # 0.1 K/mcL (0.0-1.3); Monocytes % 2.5 %; Neutrophils # 3.5 K/mcL (1.6-8.9); Platelet Count 172 K/mcL (140-400); Red Blood Count 4.83 M/mcL (4.19-5.50); Red Cell Distribution Width 14.5 % (11.5-14.5); Segmented Neutrophils % 80.8 %
[2016-10-14] MEDS: Aspirin Enteric Coated 81 MG Tablet PO SCH (09:36)
[2016-10-14] MEDS: predniSONE 20 MG TABLET PO SCH (09:36)
[2016-10-14 11:18] LABS: BUN/Creatinine Ratio 17 (6-26); Blood Urea Nitrogen 20 mg/dL (8-26); Carbon Dioxide 22 mEq/L (19-29); Chloride 103 mEq/L (98-109); Glucose 248 mg/dL (70-99); Osmolality,Calculated 291 (280-300); Potassium 4.4 mEq/L (3.5-4.5); Sodium 135 mEq/L (136-145); eGFR For African Americans > 60 (> 60); eGFR For Non-African Americans > 60 (> 60)
--- NOTE | 2016-10-14 16:31 | Electrocardiograph Report ---
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
[2016-10-15] MEDS: Azithromycin 500 MG in D5% in Water 250 ML IVPB SCH (00:30)
[2016-10-15] MEDS: Ipratropium/Albuterol Neb 3 ML IH SCH ×3 (03:46→11:44)
[2016-10-15] MEDS: *HR* Enoxaparin 40 MG/0.4 ML SYRINGE SQ SCH (06:11)
[2016-10-15 06:12] LABS: Basophils % 0.4 %; Eosinophils % 0.1 %; Hemoglobin 14.4 g/dL (12.9-16.9); Immature Granulocytes % 2.1 % (0-4); Mean Corpuscular HGB Conc 34.3 g/dL (31.6-35.5); Mean Corpuscular Hemoglobin 30.8 pg (28.0-33.3); Mean Corpuscular Volume 89.9 fL (83.0-100.0); Mean Platelet Volume 9.7 fL (9.4-12.4); Monocytes # 0.8 K/mcL (0.0-1.3); Monocytes % 10.3 %; Neutrophils # 5.6 K/mcL (1.6-8.9); Platelet Count 180 K/mcL (140-400); Red Blood Count 4.67 M/mcL (4.19-5.50); Red Cell Distribution Width 14.5 % (11.5-14.5); Segmented Neutrophils % 74.1 %
[2016-10-15 06:22] LABS: BUN/Creatinine Ratio 24 (6-26); Blood Urea Nitrogen 25 mg/dL (8-26); Carbon Dioxide 28 mEq/L (19-29); Chloride 102 mEq/L (98-109); Glucose 132 mg/dL (70-99); Osmolality,Calculated 288 (280-300); Potassium 4.4 mEq/L (3.5-4.5); Sodium 136 mEq/L (136-145); eGFR For African Americans > 60 (> 60); eGFR For Non-African Americans > 60 (> 60)
--- NOTE | 2016-10-15 08:31 | Discharge Summary ---
<Jose Dill - Last Filed: 10/15/16 12:04> Date of Encounter: 10/15/16 Time of Encounter: 08:30 - Discharge Diagnosis (1) COPD exacerbation Priority: Primary Status: Acute Comments: Patient has been treated with Duonebs, PO prednisone, and IV azithromycin. -Azithromycin is 3 day course, and should be completed today prior to discharge -Prednisone slow taper. We will send Rx home. (2) Diastolic CHF Priority: Primary Status: Chronic Comments: -Patient responded well to lasix. No obvious clinical signs or remnant fluids overload. Qualifiers: Congestive heart failure chronicity: acute on chronic Qualified Code(s): I50.33 - Acute on chronic diastolic (congestive) heart failure (3) Hypoxia Priority: Primary Status: Chronic Comments: -O2 sats remain >92% on 4L O2. -Continue pt's home O2 requiremnts (4) Super obese Priority: Secondary Status: Chronic (5) DVT prophylaxis Priority: Secondary Status: Acute - Discharge Medications Prescriptions: predniSONE [PredniSONE] 10 mg PO DAILY #63 tablet Home Medications: Albuterol Neb [Proventil Neb] 3 ml IH Q6H PRN 04/01/16 [History] Albuterol Sulfate [Ventolin Hfa] 2 puff IH Q6H PRN 04/01/16 [History] Aspirin [Lo-Dose Aspirin EC] 81 mg PO DAILY 04/01/16 [History] Enalapril Maleate [Vasotec] 20 mg PO DAILY 04/01/16 [History] Ipratropium/Albuterol Sulfate [Combivent Respimat Inhal [place]] 1 puff IH QID [History] Allopurinol [Zyloprim 100 MG] 100 mg PO DAILY 08/30/16 [History] Omeprazole [PriLOSEC] 20 mg PO DAILY 08/30/16 [History] GuaiFENesin ER [Mucinex] 600 mg PO BID PRN #30 tbbp.12hr 09/01/16 [Rx] Furosemide [Lasix] 40 mg PO BIDDIURETIC #60 tablet 09/02/16 [Rx] Nystatin POWDER [Nystop] 1 appl TP BID #2 bottle 09/02/16 [Rx] Oxygen 2.5 l .ROUTE CONT 10/14/16 [History] predniSONE [PredniSONE] 10 mg PO DAILY #63 tablet 10/15/16 [Rx] Allergies/Adverse Reactions: Allergies Sulfa (Sulfonamide Antibiotics) Allergy (Verified 04/01/16 10:50) See Comments PATIENT UNSURE OF REACTION- Date of admission: 10/14/16 18:24 Primary care physician: PCP NO - Patient Status Disposition: Home Health Service Condition: Good Functional capacity at discharge: bed bound Overall status at discharge: patient is back to baseline - Discharge Instructions Follow Up With: NO,PCP [Primary Care Provider] - - Diet and Activity Activity: resume usual activities as tolerated Diet: diabetic diet Hospital course: Mr. Mahoney is a 66 year old male with a medical history positive for COPD, asthma, hypertension, osteoporosis who presented to the ED on 10/13 with shortness of breath and productive cough for several days. At that time he Chest x-ray and and a troponin level checked which was 0.02. D-dimer was drawn for PE and a CTA demonstrated there is no PE however and atypical infection or pulmonary edema was present. The patient was admitted for acute exacerbation of COPD versus atypical pneumonia with pulmonary edema. She was treated with 2 mg, oral steroids, azithromycin and sputum cultures were taken. He was also given IV Lasix to try to pull some fluid off of his lungs. Over the course of his stay he has improved clinically. He states that he is no longer having the shortness of breath that he was having previously, and that his cough is no longer as frequent as productive.His O2 saturation has remained >92 on 4L nasal canula. - Time Spent with Patient Total time spent providing and/or coordinating discharge services: Greater than 30 minutes - Constitutional Vitals: Temp Pulse Resp BP Pulse Ox 97.6 F 82 17 106/71 96 10/15/16 07:08 10/15/16 07:08 10/15/16 07:08 10/15/16 07:08 10/15/16 07:08 General appearance: Present: cooperative, disheveled, A&O X 3, morbidly obese, pleasant - Head Head exam: Present: atraumatic, normocephalic - Eye Eye exam: Present: PERRL, conjuntiva pink, sclera anicteric Pupils: Present: PERRL - Neck Neck exam general surgery: Present: supple, trachea midline. Absent: lymphadenopathy - Respiratory Respiratory exam: Absent: accessory muscle use, rales, rhonchi, wheezes Additional comments: No obvious wheezes, rales, crackles on auscultation of lungs however should be noted that auscultation of the lungs is technically challenging due to body habitus. - Cardiovascular Cardiovascular exam: Present: RRR, +S1, +S2. Absent: diastolic murmur, gallop, rubs, systolic murmur - GI/Abdominal GI/Abdominal exam: Present: normal bowel sounds, soft, no peritoneal signs. Absent: distended, tenderness - Extremities Exam Extremities exam: Present: pedal edema, warm, radial pulses palpable and symetrical. Absent: calf tenderness, cyanotic Additional comments: 1+ edema present in LEs b/l - Neurological Exam Neurological exam: Present: CN II-XII intact, oriented X3, no focal deficits. Absent: pronater drift, facial droop, speech deficit - Skin Skin exam: Present: dry, intact <Estuardo Gonzalez H - Last Filed: 10/15/16 12:46> Date of Encounter: 10/15/16 Date of admission: 10/14/16 18:24 Primary care physician: PCP NO Hospital course: Mr. Mahoney is a 66 year old male - Time Spent with Patient Total time spent providing and/or coordinating discharge services: - Constitutional Vitals: Temp Pulse Resp BP Pulse Ox 97.8 F 92 17 101/64 92 10/15/16 11:01 10/15/16 11:01 10/15/16 11:01 10/15/16 11:01 10/15/16 11:01 - Attending Attestation Acute on chronic hypoxic respiratory failure secondary to acute COPD exacerbation due to bronchitis viral versus bacterial possible atypical pneumonia Continue prednisone , completed 3 days of 500 mg of azithromycin, Tyshawn's discharge today I examined this patient and my medical decision-making was reviewed with the [employer] [facility] [employer]ENT/PA/Advanced Practice Nurse/Resident Physician. I agree with the documented findings, disposition and treatment plan as described except to the extent set forth below.
[2016-10-15] MEDS: Aspirin Enteric Coated 81 MG Tablet PO SCH (09:05)
[2016-10-15] MEDS: predniSONE 20 MG TABLET PO SCH (09:05)
[2016-10-15] MEDS: Furosemide 40 MG/4 ML VIAL IVP SCH (09:05)
[2016-10-15 11:05] VITALS: BP 101/64
--- NOTE | 2016-10-15 12:09 | Physician Discharge Referral ---
<Jose Dill - Last Filed: 10/15/16 12:09> Home Health/Hosp Referral Info Transfer to: Home Health Provider in Charge Post Discharge: PCP - Diagnosis (1) COPD exacerbation Priority: Primary Status: Acute (2) Diastolic CHF Priority: Primary Status: Chronic (3) Hypoxia Priority: Primary Status: Chronic (4) Super obese Priority: Secondary Status: Chronic (5) DVT prophylaxis Priority: Secondary Status: Acute - Respiratory Orders Oxygen / L per min Smoking Cessation: Smoking cessation has been advised. For more information, call the [place] Tobacco Quit Line at 2-471-ENOZ-NOW. - Diet/Nutrition Diet/Nutrition Orders: Regular Diet/Nutrition: List: Diabetic - Activity Activity Orders: Bedrest - Services Needed Following services are medically necessary services: Nursing, Home Health Aide - Transfer Medications Prescriptions: predniSONE [PredniSONE] 10 mg PO DAILY #63 tablet Home Medications: Albuterol Neb [Proventil Neb] 3 ml IH Q6H PRN 04/01/16 [History] Albuterol Sulfate [Ventolin Hfa] 2 puff IH Q6H PRN 04/01/16 [History] Aspirin [Lo-Dose Aspirin EC] 81 mg PO DAILY 04/01/16 [History] Enalapril Maleate [Vasotec] 20 mg PO DAILY 04/01/16 [History] Ipratropium/Albuterol Sulfate [Combivent Respimat Inhal [place]] 1 puff IH QID [History] Allopurinol [Zyloprim 100 MG] 100 mg PO DAILY 08/30/16 [History] Omeprazole [PriLOSEC] 20 mg PO DAILY 08/30/16 [History] GuaiFENesin ER [Mucinex] 600 mg PO BID PRN #30 tbbp.12hr 09/01/16 [Rx] Furosemide [Lasix] 40 mg PO BIDDIURETIC #60 tablet 09/02/16 [Rx] Nystatin POWDER [Nystop] 1 appl TP BID #2 bottle 09/02/16 [Rx] Oxygen 2.5 l .ROUTE CONT 10/14/16 [History] predniSONE [PredniSONE] 10 mg PO DAILY #63 tablet 10/15/16 [Rx] Allergies/Adverse Reactions: Allergies Sulfa (Sulfonamide Antibiotics) Allergy (Verified 04/01/16 10:50) See Comments PATIENT UNSURE OF REACTION- Certification: Further, I certify that my clinical findings support that this patient is homebound (i.e. absences from home require considerable and taxing effort and are for medical reasons or restoration services or infrequently or short duration when for other reasons) because: Homebound Reason: Leaving home requires considerable and taxing effort due to condition Attestation: My signature below is to certify that this patient is under my care and that I, or nurse practitioner, or a physician's shop assistant working with me, has a face-to -face encounter with this patient. <Estuardo Gonzalez - Last Filed: 10/15/16 12:46> - Respiratory Orders Smoking Cessation: Smoking cessation has been advised. For more information, call the [place] Tobacco Quit Line at 2-121-VGYXNOW. Certification: Further, I certify that my clinical findings support that this patient is homebound (i.e. absences from home require considerable and taxing effort and are for medical reasons or restoration services or infrequently or short duration when for other reasons) because: Attestation: My signature below is to certify that this patient is under my care and that I, or nurse practitioner, or a physician's shop assistant working with me, has a face-to -face encounter with this patient. I examined this patient and my medical decision-making was reviewed with the [employer]/PA/Advanced Practice Nurse/Resident Physician. I agree with the documented findings, disposition and treatment plan as described except to the extent set forth below.
[2016-10-16 19:04] LABS: CK-BB (CK isoenzymes) 0 % (0-0); CK-MB (CK isoenzymes) 0 % (0-4); CK-MM (CK-isoenzymes) 100 % (96-100)
[2016-10-17 08:33] LABS: CK Total (Ck Isoenzymes) 137 U/L (20-200)
== END 2016-10-15 15:05 | disposition home health service (06) | DRG 190 ==
LOC: 3BNU 21:14 → EMEROO 21:14 → 3BNU 10-14 01:09 → SUATTDRO 10-14 18:24
PROVIDERS: ADMIT Hospitalist; ATTEND Internal Medicine

== ENCOUNTER 2016-12-17 15:11 | Inpatient (IN) ==
[2016-12-17] MEDS ORDERED: Aspirin 81 MG TAB.CHEW PO ONE (16:40)
[2016-12-17] MEDS ORDERED: Ipratropium/Albuterol Neb 3 ML IH ONE (16:40)
--- NOTE | 2016-12-17 16:46 | Emergency Department Note ---
Disposition Clinical Impression: Morbid obesity, Gout, CKD (chronic kidney disease) stage 3, GFR 30-59 ml/min, COPD exacerbation Cellulitis Qualifiers: Site of cellulitis: trunk Site of cellulitis of trunk: groin Qualified Code(s) : L03.314 - Cellulitis of groin Osteoarthritis Qualifiers: Osteoarthritis location: knee Osteoarthritis type: unspecified Laterality: right Qualified Code(s): M17.11 - Unilateral primary osteoarthritis, right knee Disposition: Admitted As Inpatient Condition: Fair Time of Disposition: 18:49 General Adult HPI - General Chief complaint: ED Extremity Problem,Nontraumatic Stated complaint: R leg gout pain, cough, weakness Time Seen by Provider: 12/17/16 16:00 Source: patient Mode of arrival: wheelchair Limitations: no limitations, physical limitation Nursing Notes Reviewed: Yes Vital Signs Reviewed: Yes - History of Present Illness HPI Narrative: 66-year-old male presents to the ED complaining of generalized weakness, cough and shortness of breath as well as right knee pain. Patient has a history of gout and is on gout medications. He states that his right knee feels a could be a gouty flare. His generalized weakness started about 2-3 days ago he does not history COPD and CHF. He is only on home oxygen if he feels like he needs it. 2 days ago he had to go on 2 L by nasal cannula and said he was started to feel better with that. He said the cough though started 2-3 days ago and he does have some yellow sputum that he is getting up. He says if he walks at all he does get very short of breath and cannot catch his breath. He noticed today that his right knee was hurting a lot and he was unable to walk on it also brought them into the emergency department today. He says it is 6 out of 10 nonradiating. He says he is unable to walk on it. He has taken 2 Aleve with no change in his symptoms. Patient complains of no headache, blurry vision, chest pain, abdominal pain, change in bowel or bladder movements. He has no pain or tingling on the arms or legs. Pain Scale: 8 - Related Data Home Medications Medication Instructions Recorded Confirmed Albuterol Neb [Proventil Neb] 3 ml IH Q6H PRN 04/01/16 12/17/16 Albuterol Sulfate [Ventolin Hfa] 2 puff IH Q6H PRN 12/27/16 09/13/17 Aspirin [Lo-Dose Aspirin EC] 81 mg PO DAILY 04/01/16 12/17/16 Enalapril Maleate [Vasotec] 20 mg PO DAILY 04/01/16 12/17/16 Ipratropium/Albuterol Sulfate 1 puff IH QID 04/01/16 12/17/16 [Combivent Respimat Inhal [place]] Allopurinol [Zyloprim 100 MG] 100 mg PO DAILY 08/30/16 12/17/16 Omeprazole [PriLOSEC] 20 mg PO DAILY 08/30/16 12/17/16 Oxygen 2.5 l .ROUTE CONT 10/14/16 12/17/16 Previous Rx's Medication Instructions Recorded Furosemide [Lasix] 40 mg PO BIDDIURETIC #60 tablet 09/02/16 Allergies Allergy/AdvReac Type Severity Reaction Status Date / Time Sulfa (Sulfonamide Allergy See Verified 12/17/16 15:47 Antibiotics) Comments Constitutional: Denies: fever, chills, weakness, weight change Eyes: Denies: eye pain, eye discharge, vision change ENT ED: Denies: ear pain, throat pain, dental pain, hearing loss, epistaxis, dysphagia Cardiovascular: Reports: dyspnea on exertion. Denies: chest pain, palpitations , edema, syncope Respiratory: Reports: cough, dyspnea, sputum production. Denies: wheezes, hemoptysis, stridor Gastrointestinal: Denies: abdominal pain, nausea, vomiting, diarrhea, constipation, hematemesis, melena, hematochezia Genitourinary: Denies: urgency, dysuria, frequency, hematuria Musculoskeletal: Reports: joint swelling. Denies: back pain, neck pain, arthralgia, myalgia Integumentary: Denies: rash, abrasion, lesions Neurological: Denies: headache, weakness, numbness, paresthesias, confusion, abnormal gait, vertigo Psychiatric: Denies: anxiety, depression, suicidal thoughts, homicidal thoughts , auditory hallucinations, visual hallucinations Endocrine: Denies: fatigue Hematological/Lymphatic: Denies: easy bleeding, easy bruising Allergic/Immunologic: Denies: facial swelling, urticaria Past Medical History - Past Medical History Medical history: Reports: arthritis, asthma, COPD, hypertension, osteoporosis Surgical history: Reports: cholecystectomy Psychiatric history: Reports: no psych history - Social History Smoking Status: Former smoker Smokeless Tobacco Status: No Alcohol use: Reports: none Drug use: Reports: none Physical Exam - General Limitations: physical limitation General appearance: alert, in no apparent distress - Head Head exam: atraumatic, normocephalic, normal inspection - Eye Eye exam: Present: normal appearance, PERRL, EOMI - ENT ENT exam: normal exam - Neck Neck exam: Present: normal inspection. Absent: tenderness - Chest Chest inspection: Present: normal inspection, symmetric chest wall rise - Respiratory Respiratory exam: Present: wheezes (Right lower base.). Absent: accessory muscle use - Cardiovascular Cardiovascular exam: Present: regular rate, normal rhythm, normal heart sounds - Abdominal Exam Abdominal exam: Present: soft, Non-Tender. Absent: tenderness, distention, guarding, rebound, rigidity - Male exam: Present: normal testicular lie, other ( exam done and shows no signs of erythema, infection or signs of foreign years gangrene no signs of crepitus along the skin penis and scrotum look normal.). Absent: erythema, scrotal swelling - Expanded Lower Extremity Exam Knee exam: Present: full ROM, tenderness (Tender on palpation to lateral joint line.), swelling (Difficult to tell due to patient being obese.), other (Right knee was warm to touch compared to left knee.) Lower leg exam: Present: normal inspection, full ROM Neurovascular/Tendon exam: Absent: motor deficit, sensory deficit, tendon deficit - Back Exam Back exam: Present: normal inspection, full ROM. Absent: tenderness - Neurological Exam Neurological exam: Present: alert, oriented X3, CN II-XII intact - Expanded Neurological Exam Patient oriented to: Present: person, place, time Speech: Present: fluid speech Cranial nerves: EOM function (II, III, IV, ): Normal, facial sensation (V): Normal, facial palsy (VII): Normal, spinal accessory function (XI): Normal, tongue deviation (XII): Normal Cerebellar function: finger to nose: Normal Motor strength - LUE: 5/5 Motor strength - RUE: 5/5 Motor strength - LLE: 5/5 Motor strength - RLE: 5/5 Upper motor neuron exam: anthony neglect: Absent bilaterally Sensory exam upper extremity: light touch: Normal Sensory exam lower extremity: light touch: Normal Coma Scale Eye Opening: Spontaneous Coma Scale Motor Response: Obeys Commands Coma Scale Verbal Response: Oriented Coma Scale Total: 15 - Skin Skin exam: Present: warm, dry, intact, erythema, other (There is a large redness and signs of cellulitis that is in the right groin that extends across his pannus to the left abdomen down the leg to the right knee that is tender to touch. There is no open ulcers or signs of abscess.) Course Course Narrative: 66-year-old male presents to the ED complaining of generalized weakness, cough and shortness of breath as well as right knee pain. The right knee pain will get an x-ray of his right knee. For the generalized weakness and shortness of breath really normal dyspnea workup including chest x-ray, EKG as well as basic laboratories including BNP, troponin, BMP, CBC. We will also get a chest x-ray and EKG. We will give him aspirin triple DuoNeb treatment and a [employer] decision spaces results come back. Patient okay with this plan this time. Vital Signs Temperature 98.5 F 12/17/16 15:41 Pulse Rate 89 12/17/16 15:41 Respiratory Rate 20 12/17/16 15:41 Blood Pressure 119/76 12/17/16 15:41 O2 Sat by Pulse Oximetry 92 12/17/16 15:41 Temperature 98.5 F 12/17/16 15:41 Pulse Rate 93 12/17/16 18:51 Respiratory Rate 16 12/17/16 19:02 Blood Pressure 115/73 12/17/16 19:02 O2 Sat by Pulse Oximetry 96 12/17/16 18:51 Oxygen Delivery Oxygen Delivery Nasal Cannula Medical Decision Making - [facility] Narrative Medical decision making narrative: 66-year-old male presents the ED complaining of difficulty in breathing as well as right knee pain. After evaluating he does have a history of COPD and CHF. We did chest x-ray which showed no difference from previous. We also knee x- ray due to his knee pain which showed severe arthritis. After examining his knee more we noticed that he did have redness on his skin which looked to be a localized cellulitis in his pannus on the right side that is spreading across his belly there are no open ulcers or abscesses on this. We did do a exam to look for any signs of Jess's gangrene there was no sign was no crepitus and there was no redness or signs of infection around the scrotum or the penis. Due to the cellulitis as well as the difficulty in breathing we will admit him. We started him on 6 mg clindamycin for MRSA coverage for the cellulitis. We will also get a UA to see if he has any UTI. We spoke with the hospitalist Joanne Fernandez who agreed to admit the patient. For cellulitis and difficult to breathing patient was admitted at this time in stable condition with stable vital signs. Knee X-Ray 12/17/16 16:30 IMPRESSION: Limited evaluation due to body habitus. Severe tricompartmental osteoarthrosis. D/ / Maverick Wheeler MD / Maverick Wheeler MD Interpreting Provider: Maverick Wheeler MD Chest X-Ray 12/17/16 16:39 IMPRESSION: No acute process. D/ / Jose Valente MD / Jose Valente MD Interpreting Provider: Jose Valente MD - Medical Records Medical records reviewed: Yes I reviewed the patient's medical records. - Lab Data Lab results reviewed: Yes I reviewed the patient's lab results. Result diagrams: 12/17/16 16:45 12/17/16 16:45 Lab Results 12/17/16 12/17/16 12/17/16 Range/Units 16:45 16:45 16:45 WBC 7.2 (4.3-11.1) K/mcL RBC 4.83 (4.19-5.50) M/mcL Hgb 14.5 (12.9-16.9) g/dL Hct 44.6 (37.5-50.1) % MCV 92.3 (83.0-100.0) fL MCH 30.0 (28.0-33.3) pg MCHC 32.5 (31.6-35.5) g/dL RDW 14.6 H (11.5-14.5) % Plt Count 215 (140-400) K/mcL MPV 9.3 L (9.4-12.4) fL Immature Gran % 1.0 (0-4) % Seg Neutrophils % 64.9 % Lymphocytes % 19.1 % Monocytes % 9.3 % Eosinophils % 5.1 % Basophils % 0.6 % Neutrophils # 4.7 (1.6-8.9) K/mcL Lymphocytes # 1.4 (0.6-4.6) K/mcL Monocytes # 0.7 (0.0-1.3) K/mcL Eosinophils # 0.4 (0.0-0.6) K/mcL Basophils # 0.0 (0.0-0.2) K/mcL Immature Plt Fraction 1.7 (1.1-6.1) % Sodium 139 (136-145) mEq/L Potassium 4.3 (3.5-4.5) mEq/L Chloride 104 (98-109) mEq/L Carbon Dioxide 25 (19-29) mEq/L BUN 18 (8-26) mg/dL Creatinine 1.17 (0.72-1.25) mg/dL Est GFR ( Amer) > 60 (> 60) Est GFR (Non-Af Amer) > 60 (> 60) BUN/Creatinine Ratio 15 (6-26) Glucose 109 H (70-99) mg/dL Calculated Osmolality 290 (280-300) Calcium 9.4 (8.6-10.8) mg/dL Troponin I 0.00 (0-0.03) ng/mL B-Natriuretic Peptide (0-100) pg/mL Urine Color (Yellow) Urine Clarity (Clear) Urine pH (5.0-8.0) pH Units Ur Specific [place] (1.010-1.025) Urine Protein (Neg-Trace) mg/dL Urine Glucose (UA) (Normal) mg/dL Urine Ketones (Negative) mg/dL Urine Blood (Negative) Urine Nitrite (Negative) Urine Bilirubin (Negative) Urine Urobilinogen (Normal) mg/dL Ur Leukocyte Esterase (Negative) Ur Culture Indicated? (NO) 12/17/16 12/17/16 Range/Units 16:45 18:37 WBC (4.3-11.1) K/mcL RBC (4.19-5.50) M/mcL Hgb (12.9-16.9) g/dL Hct (37.5-50.1) % MCV (83.0-100.0) fL MCH (28.0-33.3) pg MCHC (31.6-35.5) g/dL RDW (11.5-14.5) % Plt Count (140-400) K/mcL MPV (9.4-12.4) fL Immature Gran % (0-4) % Seg Neutrophils % % Lymphocytes % % Monocytes % % Eosinophils % % Basophils % % Neutrophils # (1.6-8.9) K/mcL Lymphocytes # (0.6-4.6) K/mcL Monocytes # (0.0-1.3) K/mcL Eosinophils # (0.0-0.6) K/mcL Basophils # (0.0-0.2) K/mcL Immature Plt Fraction (1.1-6.1) % Sodium (136-145) mEq/L Potassium (3.5-4.5) mEq/L Chloride (98-109) mEq/L Carbon Dioxide (19-29) mEq/L BUN (8-26) mg/dL Creatinine (0.72-1.25) mg/dL Est GFR ( Amer) (> 60) Est GFR (Non-Af Amer) (> 60) BUN/Creatinine Ratio (6-26) Glucose (70-99) mg/dL Calculated Osmolality (280-300) Calcium (8.6-10.8) mg/dL Troponin I (0-0.03) ng/mL B-Natriuretic Peptide 20 (0-100) pg/mL Urine Color Dark Yellow (Yellow) Urine Clarity Clear (Clear) Urine pH 6.5 (5.0-8.0) pH Units Ur Specific [place] 1.020 (1.010-1.025) Urine Protein Negative (Neg-Trace) mg/dL Urine Glucose (UA) Normal (Normal) mg/dL Urine Ketones Negative (Negative) mg/dL Urine Blood Negative (Negative) Urine Nitrite Negative (Negative) Urine Bilirubin Small H (Negative) Urine Urobilinogen Normal (Normal) mg/dL Ur Leukocyte Esterase Negative (Negative) Ur Culture Indicated? NO (NO) - Radiology Data Radiology results reviewed: Yes I reviewed the patient's radiology results. - EKG Data EKG #1 EKG results narrative: EKG done at 1644 review by myself and the attending. Shows a sinus rhythm at a rate of 87, RI interval 88, QRS 126, QTC 393 with a leftward axis. There is signs or right bundle-branch block. No signs of ST elevation or T-wave changes. No signs of hypertrophy. Compared with an old EKG done 11/25/16 which is the same morphologies. My overall impression is a normal sinus rhythm with no acute changes. EKG shows normal: sinus rhythm, intervals, QRS complexes, ST-T waves Rate: normal Rhythm: NSR [place]/QRS: left axis deviation When compared to previous EKG there are: no significant changes Interpretation: no acute changes Attestation Statement - Attestation Attestation: I examined this patient and my medical decision-making was reviewed with the Resident Physician, Dr. Liz. I agree with the documented findings, disposition and treatment plan as described except to the extent set forth below. Pt is a 66-year-old white male who presents to the emergency Department today with complaints of right knee pain and difficulty ambulating secondary to pain. Patient normally ambulatory with a cane at home and has a long history of osteoarthritis which causes chronic knee pain. Patient denies any recent falls or trauma, no pain that affects his hips or ankles. Patient's got some mild inflammation and swelling to that affected knee, but no overlying erythema or warmth to touch. Patient also reports that he gets gouty flares in the right knee that he has had in the past and is not sure if that could be causing his increase in pain. Patient also got a history of COPD and has some hypoxia on arrival in remarry states he uses oxygen as needed. Patient in no respiratory distress and is able speak in complete sentences on arrival to the ED. I agree with patient's physical exam findings as documented. On my assessment patient with some mild soft tissue swelling noted to the generalized anterior knee area on the right with tenderness along the medial and lateral joint lines. Patient with no overlying erythema or warmth to touch and no effusion. I noticed when I examined him that he has a large pannus and when lifting the pannus to better evaluate his lower extremities he has got significant erythema and skin breakdown to the lower abdominal wall that extends over towards the left abdominal wall as well as across the entire anterior right lower leg. There is no induration or abscess appreciated. It does not affect the area. Patient was started on IV antibiotics and blood cultures were obtained for extensive abdominal wall cellulitis. Patient also had a breathing treatment which seemed to help his COPD area patient is hemodynamically stable and afebrile and labs are within normal limits. We will admit the patient for further treatment of his cellulitis as well as ongoing therapy for his COPD. Patient will also possibly need evaluation by sr. social media & mobile manager for temporary group home placement due to difficulty in regulating secondary to an exacerbation of his osteoarthritis. Case was discussed with the hospitalist who accepted the patient for admission.
[2016-12-17 16:55] LABS: Basophils % 0.6 %; Eosinophils # 0.4 K/mcL (0.0-0.6); Eosinophils % 5.1 %; Hematocrit 44.6 % (37.5-50.1); Hemoglobin 14.5 g/dL (12.9-16.9); Immature Platelets 1.7 % (1.1-6.1); Lymphocytes # 1.4 K/mcL (0.6-4.6); Lymphocytes % 19.1 %; Mean Corpuscular HGB Conc 32.5 g/dL (31.6-35.5); Mean Corpuscular Volume 92.3 fL (83.0-100.0); Mean Platelet Volume 9.3 fL (9.4-12.4); Monocytes # 0.7 K/mcL (0.0-1.3); Monocytes % 9.3 %; Neutrophils # 4.7 K/mcL (1.6-8.9); Platelet Count 215 K/mcL (140-400); Red Blood Count 4.83 M/mcL (4.19-5.50); Red Cell Distribution Width 14.6 % (11.5-14.5); Segmented Neutrophils % 64.9 %
[2016-12-17 18:07] LABS: BUN/Creatinine Ratio 15 (6-26); Blood Urea Nitrogen 18 mg/dL (8-26); Calcium 9.4 mg/dL (8.6-10.8); Carbon Dioxide 25 mEq/L (19-29); Chloride 104 mEq/L (98-109); Glucose 109 mg/dL (70-99); Osmolality,Calculated 290 (280-300); Potassium 4.3 mEq/L (3.5-4.5); Sodium 139 mEq/L (136-145); eGFR For African Americans > 60 (> 60); eGFR For Non-African Americans > 60 (> 60)
[2016-12-17] MEDS ORDERED: Clindamycin 600 MG/50 ML 600 MG/50 ML IV.SOLN IVPB STA (18:19)
[2016-12-17 19:05] LABS: Bilirubin,Urine Small (Negative); Blood,Urine Negative (Negative); Clarity,Urine Clear (Clear); Color,Urine Dark Yellow (Yellow); Glucose,Urine (UA) Normal (Normal); Ketones,Urine Negative (Negative); Leukocyte Esterase,Urine Negative (Negative); Nitrite,Urine Negative (Negative); PH,Urine 6.5 pH Units (5.0-8.0); Protein,Urine Negative (Neg-Trace); Urobilinogen,Urine Normal (Normal)
[2016-12-17] MEDS ORDERED: Naloxone 0.4 MG/ML INJ IVP PRN (20:50)
[2016-12-17] MEDS ORDERED: *HR* Morphine 2 MG/ML SYRINGE IVP PRN (20:50)
[2016-12-17] MEDS ORDERED: Ondansetron 4 MG/2 ML VIAL IVP PRN (20:50)
[2016-12-17] MEDS ORDERED: Acetaminophen 325 MG TABLET PO PRN (20:50)
[2016-12-17] MEDS ORDERED: NON-FORMULARY MEDICATION 1 EACH EACH (Oxygen [Oxygen] 2.5 L) SCH (21:00)
[2016-12-17] MEDS ORDERED: Vancomycin 1,250 MG in D5% in Water 250 ML IVPB SCH (21:00)
--- NOTE | 2016-12-17 21:38 | Internal Med History&Physical ---
Date of Encounter: 12/17/16 Time of Encounter: 21:15 Assessment and Plan (1) Cellulitis Current visit: Yes Status: Acute Acute cellulitis of lower abdomen with probable Acute infectious Panniculitis Continue IV Zosyn, IV Vancomycin Cultures - pending WBC - 7.2 Chest x-ray - no acute process X-ray right knee - severe osteoarthrosis Continue to monitor closely, cardiac telemetry, labs in a.m. Qualifiers: Site of cellulitis: trunk Site of cellulitis of trunk: abdominal wall Qualified Code(s): L03.311 - Cellulitis of abdominal wall (2) COPD exacerbation Current visit: Yes Status: Acute Acute exacerbation of COPD, mild Continue Combivent, O2 via nasal cannula, Symbicort (3) Diastolic CHF Current visit: No Status: Chronic Chronic diastolic CHF - not in exacerbation Continue strict I's and O's, fluid restriction, daily weight Qualifiers: Congestive heart failure chronicity: acute on chronic Qualified Code(s): I50.33 - Acute on chronic diastolic (congestive) heart failure (4) Morbid obesity with BMI of 50.0-59.9, adult Current visit: No Status: Chronic BMI 56.6 (5) DVT prophylaxis Current visit: Yes Status: Acute Continue heparin subcutaneous Internal Medicine - H&P: HPI Chief complaint: Generalized weakness, right knee pain Admitted From: Emergency Dept Plans for Post Hospital Care: Home History of present illness: Mr. Mahoney is a 66 year old male with past medical history of arthritis, COPD , hypertension, diastolic CHF, morbid obesity and osteoporosis. Patient presents to ED with complaints of generalized weakness and right knee pain. Examined in the room. Patient is awake and alert. Not in any distress. Able to provide all history. No family members at bedside. Patient states he was trying to walk using his cane, but his right knee gave way and had a fall. Right knee pain is worse today. Rates it 6 out of 10. Worse with weightbearing. No alleviating factors. Also complains of generalized weakness for the past 2-3 days. Patient denies chest pain. Complains of mild shortness of breath with some mild productive sputum. Dyspnea is worse with exertion. No other acute complaints at this time. Initial workup in the ED is negative. Chest x-ray does not show any acute process. X-ray of the right knee reveals severe osteoarthrosis. Patient was also found to have localized cellulitis of his pannus on the right side spreading across his abdomen, with no open ulcers. exam is negative for any signs of Jess's gangrene. Patient is being admitted for cellulitis and COPD. CODE STATUS full code. Past Med Surg Social Fam HX - Past Medical History Medical history: arthritis, asthma, COPD, hypertension, osteoporosis Psychiatric history: no psych history - Past Surgical History Surgical History: cholecystectomy - Social History Smoking Status: Former smoker Smokeless Tobacco Status: No Alcohol use: none Drug use: none - Family History Mother Family Member Ethnicity: Non- Twin of Family Member: Yes Living Status: Hx Family Cardiac Disorders: Yes Hx Family Respiratory Disorders: Yes (COPD) Hx Family Cancer: No Hx Family GI Disorders: No Hx Family Endocrine Disorder: No Hx Family Neuromuscular Disorders: No Hx Family Neurologic Disorders: No Hx Family HEENT Disorders: No Hx Family Autoimmune Disorders: No Father Family Member Ethnicity: Non- Living Status: Brother Family Member Ethnicity: Non- Living Status: Hx Family Cardiac Disorders: No Hx Family Respiratory Disorders: Yes (Lung disease/COPD) Hx Family Cancer: No Hx Family GI Disorders: No Hx Family Endocrine Disorder: No Hx Family Neuromuscular Disorders: No Hx Family Neurologic Disorders: No Hx Family HEENT Disorders: No Hx Family Autoimmune Disorders: No Sister Family Member Ethnicity: Non- Living Status: Still Living Hx Family Endocrine Disorder: Yes (DM) Internal Medicine - H&P: Meds Albuterol Neb [Proventil Neb] 3 ml IH Q6H PRN 04/01/16 [History] Albuterol Sulfate [Ventolin Hfa] 2 puff IH Q6H PRN 04/01/16 [History] Aspirin [Lo-Dose Aspirin EC] 81 mg PO DAILY 04/01/16 [History] Enalapril Maleate [Vasotec] 20 mg PO DAILY 04/01/16 [History] Ipratropium/Albuterol Sulfate [Combivent Respimat Inhal [place]] 1 puff IH QID [History] Allopurinol [Zyloprim 100 MG] 100 mg PO DAILY 08/30/16 [History] Omeprazole [PriLOSEC] 20 mg PO DAILY 08/30/16 [History] Furosemide [Lasix] 40 mg PO BIDDIURETIC #60 tablet 09/02/16 [Rx] Oxygen 2.5 l .ROUTE CONT 10/14/16 [History] 3 Allergy/AdvReac Type Severity Reaction Status Date / Time Sulfa (Sulfonamide Allergy See Verified 12/17/16 15:47 Antibiotics) Comments All Systems PM: A 10-system review of systems was performed and is negative for pertinent findings except as documented above in the HPI. - Constitutional Constitutional: fatigue, weakness, no fever(s) - EENT Eyes: no blurry vision - Cardiovascular Cardiovascular ROS IM: dyspnea, dyspnea on exertion, no chest pain, no edema, no lightheadedness, no orthopnea, no syncope - Respiratory Respiratory: cough, dyspnea, dyspnea on exertion, wheezing, chest congestion, excessive phlegm production, no hemoptysis - Gastrointestinal Gastrointestinal: no belching, no bloating, no cramping, no diarrhea, no hematemesis, no hematochezia, no loose stools, no nausea, no vomiting - Genitourinary Genitourinary ROS male: no dysuria - Musculoskeletal Musculoskeletal ROS IM: other (Right knee pain) - Integumentary Integumentary IM: erythema (Lower abdomen) - Neurological Neurological ROS: no abnormal gait, no confusion, no convulsions, no dizziness, no numbness, no tingling - Constitutional Vitals: Temp Pulse Resp BP Pulse Ox 98 F 83 16 117/70 95 12/17/16 20:37 12/17/16 20:37 12/17/16 20:37 12/17/16 20:37 12/17/16 20:37 General appearance: Present: A&O X 3, morbidly obese, pleasant, no acute distress, answers questions appropriately - Head Head exam: Present: atraumatic - Eye Eye exam: Present: EOMI - ENT ENT exam: Present: mucous membranes moist - Respiratory Respiratory exam: Present: decreased breath sounds (Slightly decreased in both bases), wheezes (Mild bilateral). Absent: rales, rhonchi, tachypnea - Cardiovascular Cardiovascular exam: Present: RRR, +S1, +S2 - GI/Abdominal GI/Abdominal exam: Present: distended (Massively obese abdomen with some edema) , soft. Absent: firm, guarding, tenderness - exam: Absent: scrotal swelling, testicular tenderness - Extremities Exam Extremities exam: Present: radial pulses palpable and symmetrical. Absent: calf tenderness, cyanotic, pedal edema - Expanded Lower Extremities Exam Knee exam: Present: full ROM (Right knee), tenderness (Mild tenderness over lateral aspect), warmth (Right knee) - Neurological Exam Neurological exam: Present: alert, oriented X3, no focal deficits. Absent: facial droop, speech deficit - Skin Skin exam: Present: dry, erythema (Erythema or right groin extending across patient's pannus to the left side of the lower abdomen and down the leg of his right knee, mild tenderness, no discharge), warm Internal Med - H&P Results - Labs CBC & Chem 7: 12/17/16 16:45 12/17/16 16:45
[2016-12-17] MEDS: Vancomycin 1,500 MG in D5% in Water 250 ML IVPB SCH (23:38)
[2016-12-17] MEDS: *HR* Heparin 5,000 UNIT/ML VIAL SQ SCH (23:38)
[2016-12-17] MEDS: Aspirin Enteric Coated 81 MG Tablet PO SCH (23:38)
[2016-12-17] MEDS: Piperacillin/Tazobactam 3.375 GM in D5% in Water (Mini-Bag+) 100 ML IVPB SCH (23:38)
[2016-12-18] MEDS: Albuterol 2.5 MG/3 ML NEBULIZER IH SCH ×4 (04:57→22:58)
[2016-12-18] MEDS: (Combivent Respimat InHALER) IH SCH ×5 (05:53→21:42)
[2016-12-18] MEDS: Famotidine 20 MG/2 ML VIAL IVP SCH ×2 (05:54→17:34)
[2016-12-18 06:37] LABS: Basophils % 0.6 %; Eosinophils # 0.4 K/mcL (0.0-0.6); Eosinophils % 5.9 %; Hematocrit 40.6 % (37.5-50.1); Hemoglobin 13.4 g/dL (12.9-16.9); Lymphocytes # 1.6 K/mcL (0.6-4.6); Lymphocytes % 25.5 %; Mean Corpuscular Hemoglobin 30.7 pg (28.0-33.3); Mean Corpuscular Volume 93.1 fL (83.0-100.0); Mean Platelet Volume 9.3 fL (9.4-12.4); Monocytes # 0.6 K/mcL (0.0-1.3); Neutrophils # 3.6 K/mcL (1.6-8.9); Platelet Count 183 K/mcL (140-400); Red Blood Count 4.36 M/mcL (4.19-5.50); Red Cell Distribution Width 14.6 % (11.5-14.5)
[2016-12-18 06:53] LABS: BUN/Creatinine Ratio 16 (6-26); Blood Urea Nitrogen 20 mg/dL (8-26); Carbon Dioxide 27 mEq/L (19-29); Chloride 104 mEq/L (98-109); Chol/HDL Ratio 4.8 (0-4.9); Cholesterol 163 mg/dL (< 200); Glucose 114 mg/dL (70-99); HDL Cholesterol 34 mg/dL (40-59); LDL Cholesterol,Calculated 100 mg/dL (0-99); Magnesium 1.6 mg/dL (1.6-2.6); Osmolality,Calculated 291 (280-300); Potassium 4.2 mEq/L (3.5-4.5); Sodium 139 mEq/L (136-145); Triglycerides 147 mg/dL (< 150); eGFR For African Americans > 60 (> 60); eGFR For Non-African Americans 59 (> 60)
[2016-12-18] MEDS: *HR* Heparin 5,000 UNIT/ML VIAL SQ SCH ×2 (07:41→16:05)
[2016-12-18] MEDS: Aspirin Enteric Coated 81 MG Tablet PO SCH (07:41)
[2016-12-18] MEDS: Piperacillin/Tazobactam 3.375 GM in D5% in Water (Mini-Bag+) 100 ML IVPB SCH ×2 (07:42→16:06)
[2016-12-18] MEDS: Furosemide 40 MG TABLET PO SCH ×2 (07:42→16:05)
[2016-12-18] MEDS: Lisinopril 20 MG TABLET PO SCH (07:43)
[2016-12-18] MEDS: Budesonide/Formoterol 160/4.5 MDI IH SCH ×2 (10:26→22:58)
[2016-12-18] MEDS: Vancomycin 1,500 MG in D5% in Water 250 ML IVPB SCH (11:56)
--- NOTE | 2016-12-18 16:29 | Internal Med Progress Note ---
Date of Encounter: 12/18/16 Time of Encounter: 16:28 - Assessment and plan (1) Cellulitis Current Visit: Yes Status: Acute Assessment and plan: Mostly due to brittany infection.. super infected by bacterial infection too He never had MRSA before will cont Vanco for now check for MRSA screen Also started him on topical antifungal cream consulted wound care Qualifiers: Site of cellulitis: trunk Site of cellulitis of trunk: abdominal wall Qualified Code(s): L03.311 - Cellulitis of abdominal wall (2) Physical deconditioning Current Visit: Yes Status: Acute Assessment and plan: due to morbid obesity PT / OT eval pneding May get benefit with short term PT / OT at [facility] will talk to SW (3) Ambulatory dysfunction Current Visit: No Status: Acute (4) Morbid obesity with BMI of 50.0-59.9, adult Current Visit: No Status: Chronic Assessment and plan: counseled to loose weight (5) CKD (chronic kidney disease) stage 3, GFR 30-59 ml/min Current Visit: Yes Status: Chronic Assessment and plan: stable Cr Avoid nephrotoxic meds (6) Diastolic CHF Current Visit: No Status: Chronic Assessment and plan: stable not in exacerbation resumed all home meds Qualifiers: Congestive heart failure chronicity: acute on chronic Qualified Code(s): I50.33 - Acute on chronic diastolic (congestive) heart failure (7) Osteoarthritis Current Visit: Yes Status: Acute Qualifiers: Osteoarthritis location: knee Osteoarthritis type: unspecified Laterality : right Qualified Code(s): M17.11 - Unilateral primary osteoarthritis, right knee - Subjective Interval history: Mr. Mahoney is a 66 year old male with past medical history of arthritis, COPD , hypertension, diastolic CHF, morbid obesity and osteoporosis. Patient presents to ED with complaints of generalized weakness and right knee pain. Pt happened to have open ulcers / wound over Rt lower abdomen in between skin folds. Pt denied any CP / SOB. Still feels weak and lethargic. - Constitutional Vitals: Temp Pulse Resp BP Pulse Ox 97.7 F 82 16 128/82 96 12/18/16 15:30 12/18/16 15:30 12/18/16 15:30 12/18/16 15:30 12/18/16 15:30 General appearance: Present: A&O X 3, morbidly obese, pleasant, no acute distress, answers questions appropriately - Head Head exam: Present: atraumatic, normal inspection - Respiratory Respiratory exam: Present: decreased breath sounds, wheezes. Absent: rales, respiratory distress, rhonchi - Cardiovascular Cardiovascular exam: Present: RRR, +S1, +S2. Absent: systolic murmur - GI/Abdominal GI/Abdominal exam: Present: distended, normal bowel sounds, soft. Absent: rebound, rigid Additional comments: multiple small ulcer over Rt side of lower abdomen intertrgenous skin fold area.. severe macerated and erythematous skin noticed. - Extremities Exam Extremities exam: Absent: calf tenderness, pedal edema, tenderness - Psychiatric Psychiatric exam: Present: normal affect, normal mood Internal Medicine: Result - Labs CBC & Chem 7: 12/18/16 06:22 12/18/16 06:22 Labs: Short CBC 12/18/16 Range/Units 06:22 WBC 6.2 (4.3-11.1) K/mcL Hgb 13.4 (12.9-16.9) g/dL Hct 40.6 (37.5-50.1) % Plt Count 183 (140-400) K/mcL Neutrophils # 3.6 (1.6-8.9) K/mcL BMP 12/18/16 06:22 Sodium 139 Potassium 4.2 Chloride 104 Carbon Dioxide 27 BUN 20 Creatinine 1.24 Glucose 114 H Calcium 9.0 Consult Discharge Plan - Plan Referrals: Jose Martin Baez MD [Primary Care Provider] -
[2016-12-18] MEDS: Nystatin OINT 15 GM TUBE TP SCH ×2 (17:34→21:39)
[2016-12-19] MEDS: *HR* Heparin 5,000 UNIT/ML VIAL SQ SCH ×4 (00:15→23:56)
[2016-12-19] MEDS: Vancomycin 1,500 MG in D5% in Water 250 ML IVPB SCH (00:15)
[2016-12-19] MEDS: Albuterol 2.5 MG/3 ML NEBULIZER IH SCH ×4 (05:58→21:39)
[2016-12-19] MEDS: Famotidine 20 MG/2 ML VIAL IVP SCH ×2 (06:35→18:23)
[2016-12-19] MEDS: Furosemide 40 MG TABLET PO SCH ×2 (08:53→18:23)
[2016-12-19] MEDS: Lisinopril 20 MG TABLET PO SCH (08:54)
[2016-12-19] MEDS: (Combivent Respimat InHALER) IH SCH ×4 (08:54→20:58)
[2016-12-19 09:09] LABS: BUN/Creatinine Ratio 15 (6-26); Blood Urea Nitrogen 19 mg/dL (8-26); Carbon Dioxide 27 mEq/L (19-29); Chloride 99 mEq/L (98-109); Glucose 116 mg/dL (70-99); Osmolality,Calculated 283 (280-300); Potassium 3.9 mEq/L (3.5-4.5); Sodium 135 mEq/L (136-145); eGFR For African Americans > 60 (> 60); eGFR For Non-African Americans 59 (> 60)
[2016-12-19] MEDS: Nystatin OINT 15 GM TUBE TP SCH ×4 (10:17→21:00)
[2016-12-19] MEDS: Aspirin Enteric Coated 81 MG Tablet PO SCH (10:17)
[2016-12-19] MEDS: Budesonide/Formoterol 160/4.5 MDI IH SCH ×2 (10:41→21:39)
--- NOTE | 2016-12-19 16:25 | Internal Med Progress Note ---
Date of Encounter: 12/19/16 Time of Encounter: 16:22 - Assessment and plan (1) Cellulitis Current Visit: Yes Status: Acute Assessment and plan: Mostly due to brittany infection.. super infected by bacterial infection too He never had MRSA before his MRSA screen negative d/c Vanco started him on Keflex Also started him on topical antifungal cream consulted wound care Qualifiers: Site of cellulitis: trunk Site of cellulitis of trunk: abdominal wall Qualified Code(s): L03.311 - Cellulitis of abdominal wall (2) Physical deconditioning Current Visit: Yes Status: Acute Assessment and plan: due to morbid obesity PT / OT on board May get benefit with short term PT / OT at [facility] SW / CM working on it (3) Ambulatory dysfunction Current Visit: No Status: Acute (4) Morbid obesity with BMI of 50.0-59.9, adult Current Visit: No Status: Chronic Assessment and plan: counseled to loose weight (5) CKD (chronic kidney disease) stage 3, GFR 30-59 ml/min Current Visit: Yes Status: Chronic Assessment and plan: stable Cr Avoid nephrotoxic meds (6) Diastolic CHF Current Visit: No Status: Chronic Assessment and plan: stable not in exacerbation resumed all home meds Qualifiers: Congestive heart failure chronicity: chronic Qualified Code(s): I50.32 - Chronic diastolic (congestive) heart failure (7) Osteoarthritis Current Visit: Yes Status: Chronic Qualifiers: Osteoarthritis location: knee Osteoarthritis type: unspecified Laterality : right Qualified Code(s): M17.11 - Unilateral primary osteoarthritis, right knee - Subjective Interval history: Mr. Mahoney is a 66 year old male with past medical history of arthritis, COPD , hypertension, diastolic CHF, morbid obesity and osteoporosis. Patient presents to ED with complaints of generalized weakness and right knee pain. Pt happened to have open ulcers / wound over Rt lower abdomen in between skin folds. Pt denied any CP / SOB. Still feels weak and lethargic. No events over night - Constitutional Vitals: Temp Pulse Resp BP Pulse Ox 98.2 F 95 18 93/56 93 12/19/16 15:50 12/19/16 15:50 12/19/16 15:50 12/19/16 15:50 12/19/16 15:50 General appearance: Present: A&O X 3, morbidly obese, pleasant, no acute distress, answers questions appropriately - Head Head exam: Present: atraumatic, normal inspection - Respiratory Respiratory exam: Present: decreased breath sounds. Absent: accessory muscle use, rales, rhonchi, wheezes - Cardiovascular Cardiovascular exam: Present: RRR, +S1, +S2. Absent: diastolic murmur, gallop, rubs, systolic murmur - GI/Abdominal GI/Abdominal exam: Present: distended, normal bowel sounds, soft. Absent: rebound, rigid, tenderness Additional comments: multiple small ulcer over Rt side of lower abdomen intertrgenous skin fold area.. severe macerated and erythematous skin noticed. Improving erythema noticed today. - Neurological Exam Neurological exam: Present: alert, oriented X3 - Psychiatric Psychiatric exam: Present: normal affect, normal mood Internal Medicine: Result - Labs CBC & Chem 7: 12/18/16 06:22 12/19/16 07:42 Labs: BMP 12/19/16 07:42 Sodium 135 L Potassium 3.9 Chloride 99 Carbon Dioxide 27 BUN 19 Creatinine 1.23 Glucose 116 H Calcium 9.0 Consult Discharge Plan - Plan Referrals: Jose Martin Baez MD [Primary Care Provider] -
[2016-12-19] MEDS: ceFAZolin 1,000 MG in D5% in Water (Mini-Bag+) 100 ML IVPB SCH ×2 (18:23→23:56)
[2016-12-19] MEDS ORDERED: Aminoglycoside Consult 1 EACH MC ONE (19:07)
[2016-12-19] MEDS ORDERED: Vancomycin 1,500 MG in D5% in Water 250 ML IVPB SCH (23:00)
[2016-12-20] MEDS: Albuterol 2.5 MG/3 ML NEBULIZER IH SCH ×4 (05:30→22:38)
[2016-12-20] MEDS: Famotidine 20 MG/2 ML VIAL IVP SCH ×2 (06:13→17:02)
[2016-12-20] MEDS: Aspirin Enteric Coated 81 MG Tablet PO SCH (09:25)
[2016-12-20] MEDS: Acetaminophen 325 MG TABLET PO PRN (09:25)
[2016-12-20] MEDS: Lisinopril 20 MG TABLET PO SCH (09:26)
[2016-12-20] MEDS: Nystatin OINT 15 GM TUBE TP SCH ×4 (09:26→20:36)
[2016-12-20] MEDS: Furosemide 40 MG TABLET PO SCH ×2 (09:26→17:02)
[2016-12-20] MEDS: *HR* Heparin 5,000 UNIT/ML VIAL SQ SCH ×3 (09:26→23:23)
[2016-12-20] MEDS: ceFAZolin 1,000 MG in D5% in Water (Mini-Bag+) 100 ML IVPB SCH ×3 (09:26→23:23)
[2016-12-20] MEDS: (Combivent Respimat InHALER) IH SCH ×4 (09:26→23:02)
[2016-12-20] MEDS: Budesonide/Formoterol 160/4.5 MDI IH SCH ×2 (09:43→22:38)
--- NOTE | 2016-12-20 16:59 | Internal Med Progress Note ---
Date of Encounter: 12/20/16 Time of Encounter: 09:00 - Assessment and plan (1) Cellulitis Current Visit: Yes Status: Acute Assessment and plan: Currently on IV Ancef and appears to be improving. Low grade temp today - patient feels it is gout related. Cultures ordered. Qualifiers: Site of cellulitis: trunk Site of cellulitis of trunk: abdominal wall Qualified Code(s): L03.311 - Cellulitis of abdominal wall (2) COPD exacerbation Current Visit: Yes Status: Acute Assessment and plan: Continues to improve at this time. (3) Gout Current Visit: Yes Status: Acute Assessment and plan: Pt feels it is gout flare at this time. Monitor vitals. Recheck cultures. Most likely will try colchicine if no better. Qualifiers: Gout site: ankle Gout etiology: idiopathic Chronicity: acute Laterality : right Qualified Code(s): M10.071 - Idiopathic gout, right ankle and foot (4) Diastolic CHF Current Visit: No Status: Chronic Assessment and plan: Currently stable on his usual meds. Qualifiers: Congestive heart failure chronicity: chronic Qualified Code(s): I50.32 - Chronic diastolic (congestive) heart failure (5) Acute on chronic respiratory failure with hypoxemia Current Visit: Yes Status: Acute Assessment and plan: Monitoring pulse ox. Titrate oxygen as needed. (6) Morbid obesity with BMI of 50.0-59.9, adult Current Visit: No Status: Chronic Assessment and plan: Chronic issue. - Subjective Interval history: Mr. Mahoney is currently admitted for cellulitis of his abdomen and COPD exacerbation. He had low grade temp this AM and MEWS is elevated. He remains moderate to high risk due to potential for worsening clinical status. Mr. Mahoney is only complaining of R leg/ankle pain. He thinks it is gout. No CP or SOB. Pain kept him awake last night. No chills but had low grade tempt this AM. Thinks his skin has been improving. No GI issues. - Constitutional Vitals: Temp Pulse Resp BP Pulse Ox 98.7 F 102 24 110/77 91 12/20/16 16:27 12/20/16 16:27 12/20/16 16:27 12/20/16 16:27 12/20/16 16:27 General appearance: Present: A&O X 3, morbidly obese, pleasant, answers questions appropriately - Head Head exam: Present: normocephalic - Eye Eye exam: Present: EOMI, conjuntiva pink - ENT ENT exam: Present: mucous membranes dry - Respiratory Respiratory exam: Present: decreased breath sounds, CTAB. Absent: rales, rhonchi, wheezes - Cardiovascular Cardiovascular exam: Present: distant heart sounds, RRR. Absent: tachycardia - GI/Abdominal GI/Abdominal exam: Present: soft. Absent: tenderness - Extremities Exam Extremities exam: Present: tenderness, warm Additional comments: RLE warmer than L. Tender to touch R ankle area. - Neurological Exam Neurological exam: Present: alert, oriented X3 - Skin Skin exam: Present: rash, warm Additional comments: Area on lower abdomen does not appear as red as previously documented. Internal Medicine: Result - Labs CBC & Chem 7: 12/18/16 06:22 12/19/16 07:42 - Impressions Impressions Chest X-Ray 12/20/16 10:14 IMPRESSION: New scattered linear opacities are likely atelectasis. No obvious parenchymal consolidation. D/ / Donovan Barnes MD / Donovan Barnes MD Interpreting Provider: Donovan Barnes MD Ankle X-Ray 12/20/16 10:15 IMPRESSION: Chronic degenerative changes of the midfoot and ankle. No acute process D/ / Jose Godfrey MD / Jose Godfrey MD Interpreting Provider: Jose Godfrey MD Foot X-Ray 12/20/16 10:15 IMPRESSION: Soft tissue swelling. No acute osseous abnormality. D/ / Donovan Barnes MD / Donovan Barnes MD Interpreting Provider: Donovan Barnes MD Consult Discharge Plan - Plan Referrals: Jose Martin Baez MD [Primary Care Provider] -
[2016-12-20 17:45] LABS: Bilirubin,Urine Negative (Negative); Blood,Urine Negative (Negative); Clarity,Urine Clear (Clear); Color,Urine Dark Yellow (Yellow); Glucose,Urine (UA) Normal (Normal); Ketones,Urine Negative (Negative); Leukocyte Esterase,Urine Negative (Negative); Nitrite,Urine Negative (Negative); PH,Urine 5.5 pH Units (5.0-8.0); Protein,Urine Negative (Neg-Trace); Specific Gravity,Urine 1.021 (1.010-1.025); Urobilinogen,Urine Normal (Normal)
[2016-12-21 04:08] LABS: Hematocrit 40.7 % (37.5-50.1); Hemoglobin 12.9 g/dL (12.9-16.9); Mean Corpuscular HGB Conc 31.7 g/dL (31.6-35.5); Mean Corpuscular Hemoglobin 29.7 pg (28.0-33.3); Mean Corpuscular Volume 93.8 fL (83.0-100.0); Mean Platelet Volume 9.4 fL (9.4-12.4); Platelet Count 216 K/mcL (140-400); Red Blood Count 4.34 M/mcL (4.19-5.50); Red Cell Distribution Width 14.6 % (11.5-14.5)
[2016-12-21] MEDS: Albuterol 2.5 MG/3 ML NEBULIZER IH SCH ×4 (04:24→22:35)
[2016-12-21 04:34] LABS: Alanine Aminotransferase 9 Units/L (0-55); Albumin 2.5 g/dL (3.5-5.0); Albumin/Globulin Ratio 0.7 (1.1-2.2); Alkaline Phosphatase 73 Units/L (38-126); Aspartate Amino Transferase 17 Units/L (5-34); BUN/Creatinine Ratio 19 (6-26); Bilirubin,Total 0.8 mg/dL (0.2-1.2); Blood Urea Nitrogen 23 mg/dL (8-26); C-Reactive Protein 105 mg/L (Less than 5); Calcium 8.9 mg/dL (8.6-10.8); Carbon Dioxide 29 mEq/L (19-29); Chloride 100 mEq/L (98-109); Globulin 3.8 g/dL (2.4-3.5); Glucose 141 mg/dL (70-99); Magnesium 1.4 mg/dL (1.6-2.6); Osmolality,Calculated 288 (280-300); Potassium 4.4 mEq/L (3.5-4.5); Sodium 136 mEq/L (136-145); Total Protein 6.3 g/dL (6.0-8.3); Uric Acid 6.7 mg/dL (3.5-7.2); eGFR For African Americans > 60 (> 60); eGFR For Non-African Americans 59 (> 60)
[2016-12-21] MEDS: Famotidine 20 MG/2 ML VIAL IVP SCH ×2 (06:06→17:12)
[2016-12-21] MEDS ORDERED: Magnesium Sulfate 2 GM in D5% in Water 100 ML IVPB ONE (08:59)
[2016-12-21] MEDS: Budesonide/Formoterol 160/4.5 MDI IH SCH ×2 (09:39→22:36)
[2016-12-21] MEDS: ceFAZolin 1,000 MG in D5% in Water (Mini-Bag+) 100 ML IVPB SCH ×2 (10:10→17:11)
[2016-12-21] MEDS: Lisinopril 20 MG TABLET PO SCH (10:10)
[2016-12-21] MEDS: *HR* Heparin 5,000 UNIT/ML VIAL SQ SCH ×2 (10:10→17:12)
[2016-12-21] MEDS: Furosemide 40 MG TABLET PO SCH ×2 (10:10→17:12)
[2016-12-21] MEDS: Aspirin Enteric Coated 81 MG Tablet PO SCH (10:10)
[2016-12-21] MEDS: Nystatin OINT 15 GM TUBE TP SCH ×4 (10:11→21:24)
[2016-12-21] MEDS: (Combivent Respimat InHALER) IH SCH ×4 (10:11→21:24)
[2016-12-21] MEDS ORDERED: Levofloxacin 750 MG/150 ML 750 MG/150 ML BAG IVPB ONE (11:31)
[2016-12-21] MEDS: Colchicine 0.6 MG TABLET PO SCH (12:16)
[2016-12-21] MEDS: Acetaminophen 325 MG TABLET PO PRN (15:07)
--- NOTE | 2016-12-21 17:18 | Internal Med Progress Note ---
Date of Encounter: 12/21/16 Time of Encounter: 10:00 - Assessment and plan (1) COPD exacerbation Current Visit: Yes Status: Acute Assessment and plan: Coughing worse today and sputum worse. Add Levaquin course. (2) Cellulitis Current Visit: Yes Status: Acute Assessment and plan: Currently on IV Ancef. Continues to improve. Qualifiers: Site of cellulitis: trunk Site of cellulitis of trunk: abdominal wall Qualified Code(s): L03.311 - Cellulitis of abdominal wall (3) Gout Current Visit: Yes Status: Acute Assessment and plan: Xrays show arthritis. Will add colchicine today. Qualifiers: Gout site: ankle Gout etiology: idiopathic Chronicity: acute Laterality : right Qualified Code(s): M10.071 - Idiopathic gout, right ankle and foot (4) Diastolic CHF Current Visit: No Status: Chronic Assessment and plan: Currently stable on his usual meds. Qualifiers: Congestive heart failure chronicity: chronic Qualified Code(s): I50.32 - Chronic diastolic (congestive) heart failure (5) Acute on chronic respiratory failure with hypoxemia Current Visit: Yes Status: Acute Assessment and plan: No change today. Continue as is for now. (6) Morbid obesity with BMI of 50.0-59.9, adult Current Visit: No Status: Chronic Assessment and plan: Chronic issue. - Subjective Interval history: Mr. Mahoney is currently admitted for cellulitis of his abdomen and COPD exacerbation. He has not had recurrent fever but is coughing more today. He remains moderate to high risk due to potential for worsening respiratory status. Mr. Mahoney says he does not feel well today. He is coughing more and sputum is purulent. No fever or chills. Blood cx neg thus far. WBC normal. No diarrhea. Continues to have pain in feet and ankles. - Constitutional Vitals: Temp Pulse Resp BP Pulse Ox 97.5 F L 88 20 95/51 95 12/21/16 16:14 12/21/16 16:14 12/21/16 16:14 12/21/16 16:14 12/21/16 16:14 General appearance: Present: A&O X 3, morbidly obese, pleasant, answers questions appropriately - Head Head exam: Present: normocephalic - Eye Eye exam: Present: EOMI, conjuntiva pink - ENT ENT exam: Present: mucous membranes moist - Respiratory Respiratory exam: Present: decreased breath sounds, rhonchi - Cardiovascular Cardiovascular exam: Present: RRR. Absent: tachycardia - GI/Abdominal GI/Abdominal exam: Present: soft. Absent: tenderness - Extremities Exam Extremities exam: Present: warm. Absent: tenderness - Neurological Exam Neurological exam: Present: alert, oriented X3 - Skin Skin exam: Present: warm Additional comments: Improving intertrigo. Internal Medicine: Result - Labs CBC & Chem 7: 12/21/16 03:57 12/21/16 03:57 Labs: Short CBC 12/21/16 Range/Units 03:57 WBC 8.1 (4.3-11.1) K/mcL Hgb 12.9 (12.9-16.9) g/dL Hct 40.7 (37.5-50.1) % Plt Count 216 (140-400) K/mcL BMP 12/21/16 03:57 Sodium 136 Potassium 4.4 Chloride 100 Carbon Dioxide 29 BUN 23 Creatinine 1.24 Glucose 141 H Calcium 8.9 Liver Function 12/21/16 Range/Units 03:57 Total Bilirubin 0.8 (0.2-1.2) mg/dL AST 17 (5-34) Units/L ALT 9 (0-55) Units/L Alkaline Phosphatase 73 (38-126) Units/L Albumin 2.5 L (3.5-5.0) g/dL Urine 12/20/16 Range/Units 17:34 Urine Color Dark Yellow (Yellow) Urine Clarity Clear (Clear) Urine pH 5.5 (5.0-8.0) pH Units Ur Specific [place] 1.021 (1.010-1.025) Urine Protein Negative (Neg-Trace) mg/dL Urine Glucose (UA) Normal (Normal) mg/dL Consult Discharge Plan - Plan Referrals: Jose Martin Baez MD [Primary Care Provider] -
[2016-12-21] MEDS: Famotidine 20 MG TABLET PO SCH (17:44)
[2016-12-22] MEDS: ceFAZolin 1,000 MG in D5% in Water (Mini-Bag+) 100 ML IVPB SCH ×3 (00:31→17:17)
[2016-12-22] MEDS: *HR* Heparin 5,000 UNIT/ML VIAL SQ SCH ×3 (00:47→17:17)
[2016-12-22] MEDS: Albuterol 2.5 MG/3 ML NEBULIZER IH SCH ×3 (03:44→16:28)
[2016-12-22 05:17] LABS: Hematocrit 39.1 % (37.5-50.1); Hemoglobin 12.5 g/dL (12.9-16.9); Mean Corpuscular Hemoglobin 30.1 pg (28.0-33.3); Mean Corpuscular Volume 94.2 fL (83.0-100.0); Mean Platelet Volume 8.9 fL (9.4-12.4); Platelet Count 207 K/mcL (140-400); Red Blood Count 4.15 M/mcL (4.19-5.50); Red Cell Distribution Width 14.8 % (11.5-14.5)
[2016-12-22 05:36] LABS: Calcium 8.7 mg/dL (8.6-10.8); Magnesium 1.8 mg/dL (1.6-2.6); Potassium 4.4 mEq/L (3.5-4.5)
[2016-12-22] MEDS: Famotidine 20 MG TABLET PO SCH ×2 (05:57→17:17)
[2016-12-22] MEDS: Vancomycin 1,500 MG in D5% in Water 250 ML IVPB SCH (07:09)
[2016-12-22] MEDS: Furosemide 40 MG TABLET PO SCH ×2 (07:53→17:17)
[2016-12-22] MEDS: Lisinopril 20 MG TABLET PO SCH (07:53)
[2016-12-22] MEDS: Colchicine 0.6 MG TABLET PO SCH (07:53)
[2016-12-22] MEDS: Aspirin Enteric Coated 81 MG Tablet PO SCH (07:53)
[2016-12-22] MEDS: (Combivent Respimat InHALER) IH SCH ×2 (07:55→16:59)
[2016-12-22] MEDS: Nystatin OINT 15 GM TUBE TP SCH ×3 (07:55→17:18)
--- NOTE | 2016-12-22 09:06 | Discharge Summary ---
Date of Encounter: 12/22/16 Time of Encounter: 09:04 - Discharge Diagnosis (1) Cellulitis Priority: Primary Status: Resolved Qualifiers: Site of cellulitis: trunk Site of cellulitis of trunk: abdominal wall Qualified Code(s): L03.311 - Cellulitis of abdominal wall (2) Acute on chronic respiratory failure with hypoxemia Priority: Primary Status: Acute (3) COPD exacerbation Priority: Primary Status: Acute (4) Gout Priority: Secondary Status: Acute Qualifiers: Gout site: ankle Gout etiology: idiopathic Chronicity: acute Laterality : right Qualified Code(s): M10.071 - Idiopathic gout, right ankle and foot (5) Diastolic CHF Priority: Secondary Status: Chronic Qualifiers: Congestive heart failure chronicity: chronic Qualified Code(s): I50.32 - Chronic diastolic (congestive) heart failure (6) Morbid obesity with BMI of 50.0-59.9, adult Priority: Secondary Status: Chronic (7) CKD (chronic kidney disease) stage 3, GFR 30-59 ml/min Priority: Secondary Status: Chronic - Discharge Medications Prescriptions: Guaifenesin [Mucinex] 1,200 mg PO BID #1 tab.er.12h levoFLOXacin [Levaquin] 500 mg PO DAILY #5 tablet Home Medications: Albuterol Neb [Proventil Neb] 3 ml IH Q6H PRN 04/01/16 [History] Albuterol Sulfate [Ventolin Hfa] 2 puff IH Q6H PRN 04/01/16 [History] Aspirin [Lo-Dose Aspirin EC] 81 mg PO DAILY 04/01/16 [History] Ipratropium/Albuterol Sulfate [Combivent Respimat Inhal [place]] 1 puff IH QID [History] Allopurinol [Zyloprim 100 MG] 100 mg PO DAILY 08/30/16 [History] Omeprazole [PriLOSEC] 20 mg PO DAILY 08/30/16 [History] Oxygen 2.5 l .ROUTE CONT 10/14/16 [History] Acetaminophen [Tylenol] 650 mg PO Q6HR PRN tab 12/22/16 [Rx] Budesonide/Formoterol 160/4.5 [Symbicort 160/4.5] 1 puff IH BIDR 12/22/16 [Rx] Colchicine [Colcrys] 0.6 mg PO Q48H tab 12/22/16 [Rx] Furosemide [Lasix] 40 mg PO DAILY tab 12/22/16 [Rx] Guaifenesin [Mucinex] 1,200 mg PO BID #1 tab.er.12h 12/22/16 [Rx] Lisinopril [Zestril] 20 mg PO DAILY tab 12/22/16 [Rx] Nystatin OINT [Mycostatin] 1 appl TP QID 12/22/16 [Rx] levoFLOXacin [Levaquin] 500 mg PO DAILY #5 tablet 12/22/16 [Rx] Allergies/Adverse Reactions: 3 Allergy/AdvReac Type Severity Reaction Status Date / Time Sulfa (Sulfonamide Allergy See Verified 12/17/16 15:47 Antibiotics) Comments Date of admission: 12/17/16 20:50 Primary care physician: Jose Martin Baez MD Consults: 12/17/16 22:03 Consult to Dough Maker [CONS] Routine Reason for SW Consult: pt need walker, has home health not sure who through 12/18/16 13:34 Consult to Occupational Therapy [CONS] Routine Comment: Evaluate, develop and implement POC Reason for Consult: eval Consult to Physical Therapy [CONS] Routine Comment: Evaluate, develop and implement POC Reason for Consult: eval Consult to Wound Care [CONS] Routine Reason for Consult: area to right groin/abdominal area, some areas open. Call Completed: No Discharging clinician: Julio Cesar Carrizales Anticipated date of discharge: 12/22/16 - Patient Status Disposition: Transfer SNF Condition: Fair Functional capacity at discharge: uses cane/walker Overall status at discharge: patient is progressing back to baseline - Discharge Instructions Follow Up With: Jose Martin Baez MD [Primary Care Provider] - - Diet and Activity Activity: ambulate only with your walker, as per physical therapy, increase activity as tolerated Diet: advance to your usual diet, low salt diet Hospital course: Mr. Mahoney is a 66 year old male with history of gout, COPD and diastolic CHF present to ED with complaints of weakness and R knee pain. Symptoms were progressive over prior few days. He was found to have cellulitis on his abdomen and was subsequently admitted. Mr Mahoney was admitted to med floor. He was started on IV abx for cellulitis and continued on his usual home meds. He had gradual improvement in his skin and abx were changed to IV Ancef. He continued to have issues with joint pain and felt it was due to his chronic gout. Xrays were negative for acute process. On 12/20 he was noted to have a new low grade fever. CXR was negative and cultures were drawn and negative to date. This resolved overnight but he continued to have cough with purulent sputum and joint pain. Levaquin was added for his chest. Colchicine was added for gout. On 12/22 he is afebrile with stable vitals. He still has some chest congestion but overall is improved with addition of Levaquin. His joint pain has improved some with Colchicine. He does have a slight increase in his creatinine most likely due to combination of diuresis, KADEN and Colchicine. He will be discharged to SNF. Lasix dose has been decreased and colchicine changed to q48 hours. His renal function will need rechecked tomorrow and followed. - Time Spent with Patient Total time spent providing and/or coordinating discharge services: 42min - Constitutional Vitals: Temp Pulse Resp BP Pulse Ox 97.7 F 78 17 112/54 94 12/22/16 07:45 12/22/16 07:45 12/22/16 07:45 12/22/16 07:45 12/22/16 07:45 General appearance: Present: A&O X 3, morbidly obese, pleasant, answers questions appropriately - Head Head exam: Present: normocephalic - Eye Eye exam: Present: EOMI, conjuntiva pink - ENT ENT exam: Present: mucous membranes dry - Respiratory Respiratory exam: Present: decreased breath sounds. Absent: rales, rhonchi, wheezes Additional comments: Clearer today. - Cardiovascular Cardiovascular exam: Present: distant heart sounds, RRR. Absent: tachycardia - GI/Abdominal GI/Abdominal exam: Present: soft. Absent: tenderness - Extremities Exam Extremities exam: Present: warm. Absent: tenderness - Neurological Exam Neurological exam: Present: alert, oriented X3 - Skin Skin exam: Present: warm. Absent: rash Additional comments: Improved on abdomen.
--- NOTE | 2016-12-22 09:24 | Physician Discharge Referral ---
ExtendedCare Referral Info Transfer To: [place] Provider in Charge: Julio Cesar Carrizales DO Provider in Charge after Transfer: PCP Institutional Level of Care: Skilled - Diagnosis (1) Cellulitis Priority: Primary Status: Resolved (2) Acute on chronic respiratory failure with hypoxemia Priority: Primary Status: Acute (3) COPD exacerbation Priority: Primary Status: Acute (4) Gout Priority: Secondary Status: Acute (5) Diastolic CHF Priority: Secondary Status: Chronic (6) Morbid obesity with BMI of 50.0-59.9, adult Priority: Secondary Status: Chronic (7) CKD (chronic kidney disease) stage 3, GFR 30-59 ml/min Priority: Secondary Status: Chronic Expected Duration of Placement: Less than 30 days Prognosis: Fair Aware of Diagnosis: Patient Aware of Prognosis: Patient - Transfer Medications Prescriptions: Guaifenesin [Mucinex] 1,200 mg PO BID #1 tab.er.12h levoFLOXacin [Levaquin] 500 mg PO DAILY #5 tablet Home Medications: Albuterol Neb [Proventil Neb] 3 ml IH Q6H PRN 04/01/16 [History] Albuterol Sulfate [Ventolin Hfa] 2 puff IH Q6H PRN 04/01/16 [History] Aspirin [Lo-Dose Aspirin EC] 81 mg PO DAILY 04/01/16 [History] Ipratropium/Albuterol Sulfate [Combivent Respimat Inhal [place]] 1 puff IH QID [History] Allopurinol [Zyloprim 100 MG] 100 mg PO DAILY 08/30/16 [History] Omeprazole [PriLOSEC] 20 mg PO DAILY 08/30/16 [History] Oxygen 2.5 l .ROUTE CONT 10/14/16 [History] Acetaminophen [Tylenol] 650 mg PO Q6HR PRN tab 12/22/16 [Rx] Budesonide/Formoterol 160/4.5 [Symbicort 160/4.5] 1 puff IH BIDR 12/22/16 [Rx] Colchicine [Colcrys] 0.6 mg PO Q48H tab 12/22/16 [Rx] Furosemide [Lasix] 40 mg PO DAILY tab 12/22/16 [Rx] Guaifenesin [Mucinex] 1,200 mg PO BID #1 tab.er.12h 12/22/16 [Rx] Lisinopril [Zestril] 20 mg PO DAILY tab 12/22/16 [Rx] Nystatin OINT [Mycostatin] 1 appl TP QID 12/22/16 [Rx] levoFLOXacin [Levaquin] 500 mg PO DAILY #5 tablet 12/22/16 [Rx] Allergies/Adverse Reactions: 3 Allergy/AdvReac Type Severity Reaction Status Date / Time Sulfa (Sulfonamide Allergy See Verified 12/17/16 15:47 Antibiotics) Comments - Respiratory Orders Oxygen / L per min (Maintain saturation greater than 90%) Smoking Cessation: Smoking cessation has been advised. For more information, call the [place] Tobacco Quit Line at 7-171-JZVC-NOW. - Lab Orders Lab Orders: 2 Step Mantoux Test per State regulation, CBC, Jacky 17 (Please do chemistry on 12/23 to evaluate renal function.) - Ancillary Orders May use pressure relief devices daily prn, May go on PHI w/family/respon constitution party w /meds at nurse discretion PRN, May have alcoholic beverages, May consult with Dentist, Small Engine Trainer, Soft Work Cigar Machine Operator PRN - Advance Directives Code Status: Full Code - History and Physical History/Physical reviewed & approved w/add comments: Improved cellulitis with abx. - Mobility Orders Ambulate - Rehabiliation Orders Rehab Potential: Fair Rehab Orders: Evaluation for Physical Therapy, Evaluation for Occupational Therapy - Treatments Skin tear care topically daily PRN per policy, May check for fecal impaction rectally daily PRN, Fleet enema rectally every other day PRN cleansing purposes - Diet Orders Cardiac CERTIFICATION: I certify that the transfer of the above named patient to an Extended Care Facility is necessary for the continuing treatment of the diagnosis listed. The above information is true and accurate reflection of patient's current condition. Confidential - Redisclosure prohibited without a patient's written consent.
[2016-12-22] MEDS: Budesonide/Formoterol 160/4.5 MDI IH SCH (10:47)
[2016-12-22 15:40] VITALS: BP 121/70
--- NOTE | 2016-12-22 20:35 | Electrocardiograph Report ---
[place] [address] Test Date: 2016-12-17 Pat Name: Devin Mahoney Department: 105 Room: 3B Gender: M Fur Coat Sewer: : 1950 Requested By: Sea Liz Order Number: [id number] Reading MD: Bossman Mena MD Measurements Intervals [place] Rate: 87 P: -69 TN: 88 QRS: 269 QRSD: 156 T: 8 QT: 349 QTc: 393 Interpretive Statements SINUS RHYTHM MARKED RIGHT AXIS DEVIATION RIGHT BUNDLE BRANCH BLOCK INFERIOR MYOCARDIAL INFARCTION, PROBABLY OLD POOR R WAVE PROGRESSION Electronically Signed On 12-22-2016 20:33:55 EDT by Bossman Mena MD
== END 2016-12-22 19:08 | DRG 602 ==
LOC: EMEROO 15:11 → 3BNU 15:11 → SUATTDRO 20:50
PROVIDERS: ADMIT Registered Nurse; ATTEND Internal Medicine